=== PATIENT | female | born 1940 | race Caucasian/White ===

== ENCOUNTER → 2016-08-29 | Outpatient (CLI) | payer OTHER ==
[~2016-08-29] MED LIST: ACET-1256 PO; ADVIN50/60 INH; CHOL100027 PO; CITA40TA4 PO; CLC100X PO; CPR500 PO; EPP3/2 IM; METR-163 PO; PANT40TA PO; RANI300T PO; SNG10 PO; ULT50X PO
--- NOTE | 2016-08-29 16:43 | MAMMOGRAPHY REPORT ---
UNILATERAL LEFT DIGITAL SCREENING MAMMOGRAM TOMOSYNTHESIS WITH CAD: 08/29/2016 CLINICAL HISTORY: Routine screening. Patient has no complaints. TECHNIQUE: Left breast tomosynthesis in addition to standard 2D mammography was performed. Current bernard cisneros was also evaluated with a Computer Aided Detection (CAD) system. COMPARISON: Comparison is made to exams dated: 08/28/2015 mammogram - [facility], 08/12/2014 mammogram, and 07/29/2013 mammogram. BREAST COMPOSITION: The tissue of the left breast is heterogeneously dense, which may obscure small masses. FINDINGS: There are scattered and grouped punctate microcalcifications throughout the left breast, m ost numerous anteriorly, which are stable dating back to at least 2007, therefore likely benign. Th ere is also a stable tatiana-shaped metallic biopsy marker in the left upper outer quadrant. No new dinesh picious mass, architectural distortion or cluster of microcalcifications is seen. IMPRESSION: ACR BI-RADS CATEGORY 1: NEGATIVE There is no mammographic evidence of malignancy. A 1 year screening mammogram is recommended. The p atient will receive written notification of the results. Approximately 10% of breast cancers are not detected with mammography. A negative mammographic repor t should not delay biopsy if a clinically suggestive mass is present. Radha Simon M.D. ay/:08/29/2016 15:32:56 Heat Treating Furnace Tender: Blanca Richards, [facility] letter sent: Normal 1/2 BI-RADS Code: ACR BI-RADS Category 1: Negative
== END | disposition home or self-care (01) ==
LOC: C.MAMM 10:00
PROVIDERS: ATTEND Internal Medicine Geriatric Medicine
DX: Z12.31 Encounter for screening mammogram for malignant neoplasm of breast (principal)

== ENCOUNTER → 2016-11-28 | Outpatient (CLI) | payer OTHER ==
--- NOTE | 2016-11-28 15:08 | DIAGNOSTIC IMAGING REPORT ---
LUMBAR SPINE 5 VIEWS HISTORY: Pain Back pain, chronic COMPARISON: None. FINDINGS: There is no fracture. Mild scoliosis. Mild degenerative disc change. No evidence for an acute compression deformity. Vertebral body stature is normal. IMPRESSION: Mild scoliosis. Mild degenerative disc change. No acute process. Electronically signed by: Manfred Sorenson M.D. 11/28/2016 3:07 PM Dictated Date/Time: 11/28/2016 3:06 PM
== END | disposition home or self-care (01) ==
LOC: C.RADBC 14:27
PROVIDERS: ATTEND Internal Medicine Geriatric Medicine
DX: M54.9 Dorsalgia, unspecified (principal)

== ENCOUNTER → 2017-05-03 | Outpatient (CLI) | payer OTHER ==
[2017-05-03 17:47] LABS: BASO % 1.1 %; BASO ABS # 0.05 K/uL (0-0.2); COMPLETE YES; EOS % 3.5 %; HEMATOCRIT 38.5 % (37-47); IG% 0.2 %; LYMPH % 31.8 %; LYMPH ABS # 1.44 K/uL (1.2-3.4); MEAN CELL VOLUME 86.3 fL (80-100); MEAN CORPUSCULAR HEMOGLOBIN 28.7 pg (25-34); MEAN CORPUSCULAR HGB CONC 33.2 g/dl (32-36); MEAN PLATELET VOLUME 9.4 fL (7.4-10.4); MONO % 4.9 %; NEUT % 58.5 %; PLATELET COUNT 226 K/uL (130-400); RED BLOOD COUNT 4.46 M/uL (4.2-5.4); WHITE BLOOD COUNT 4.53 K/uL (4.8-10.8)
[2017-05-03 18:34] LABS: ALT/SGPT 17 U/L (12-78); AST/SGOT 14 U/L (15-37); BLOOD UREA NITROGEN 17 mg/dl (7-18); BUN/CREATININE RATIO 14.3 (10-20); CALCIUM 8.5 mg/dl (8.5-10.1); CARBON DIOXIDE 27 mmol/L (21-32); CHLORIDE 106 mmol/L (98-107); CHOLESTEROL 225 mg/dl (0-200); GLUCOSE 80 mg/dl (70-99); POTASSIUM 4.5 mmol/L (3.5-5.1); SODIUM 141 mmol/L (136-145)
[2017-05-03 18:42] LABS: ALB/GLOB RATIO 1.1 (0.9-2); ALKALINE PHOSPHATASE 63 U/L (45-117); CHOLESTEROL/HDL RATIO 3.3; HDL CHOLESTEROL 69 mg/dl; LDL CHOLESTEROL CALCULATED 126 mg/dl; TRIGLYCERIDES 150 mg/dl (0-150); VERY LOW DENSITY LIPOPROT CALC 30 mg/dl
== END | disposition home or self-care (01) ==
LOC: C.LAB 16:24
PROVIDERS: ATTEND Internal Medicine Geriatric Medicine
DX: F41.8 Other specified anxiety disorders (principal); E78.5 Hyperlipidemia, unspecified; M85.80 Other specified disorders of bone density and structure, unspecified site; R63.4 Abnormal weight loss; E55.9 Vitamin D deficiency, unspecified; M19.90 Unspecified osteoarthritis, unspecified site; R73.9 Hyperglycemia, unspecified

== ENCOUNTER → 2017-10-05 | Outpatient (CLI) | payer OTHER ==
--- NOTE | 2017-10-05 15:06 | MAMMOGRAPHY REPORT ---
UNILATERAL LEFT DIGITAL SCREENING MAMMOGRAM TOMOSYNTHESIS WITH CAD: 10/05/2017 CLINICAL HISTORY: Asymptomatic. Personal history of breast cancer. TECHNIQUE: Breast tomosynthesis in addition to standard 2D mammography was performed. Current study was also evaluated with a Computer Aided Detection (CAD) system. COMPARISON: Comparison is made to exams dated: 08/29/2016 mammogram, 08/28/2015 mammogram - [facility], 08/12/2014 mammogram, and 07/29/2013 mammogram. BREAST COMPOSITION: The tissue of the left breast is heterogeneously dense, which may obscure small masses. FINDINGS: There are no suspicious masses, calcifications, or areas of architectural distortion noted in the left breast. There has been no significant interval change compared to prior exams. Scattere d benign-appearing left breast calcifications are not significantly changed. A biopsy clip is again noted within the left 3:00 breast. IMPRESSION: ACR BI-RADS CATEGORY 2: BENIGN There is no mammographic evidence of malignancy in the left breast. A 1 year screening mammogram is r ecommended. The patient will receive written notification of the results. Approximately 10% of breast cancers are not detected with mammography. A negative mammographic report should not delay biopsy if a clinically suggestive mass is present. Elle Foreman M.D. ah/:10/05/2017 13:57:38 Networks Software Consultant: Mayte VALLADARES)(Ishan), [facility] letter sent: Normal 1/2 BI-RADS Code: ACR BI-RADS Category 2: Benign
== END | disposition home or self-care (01) ==
LOC: C.MAMM 13:30
PROVIDERS: ATTEND Internal Medicine Geriatric Medicine
DX: Z12.31 Encounter for screening mammogram for malignant neoplasm of breast (principal); Z90.11 Acquired absence of right breast and nipple

== ENCOUNTER → 2017-10-30 | Outpatient (CLI) | payer OTHER ==
[2017-10-30 16:47] LABS: BASO % 0.4 %; BASO ABS # 0.02 K/uL (0-0.2); EOS % 1.7 %; EOS ABS # 0.08 K/uL (0-0.5); HEMATOCRIT 38.8 % (37-47); IG# 0.01 K/uL (0.00-0.02); LYMPH % 42.3 %; LYMPH ABS # 1.95 K/uL (1.2-3.4); MEAN CELL VOLUME 83.8 fL (80-100); MEAN CORPUSCULAR HEMOGLOBIN 28.1 pg (25-34); MEAN CORPUSCULAR HGB CONC 33.5 g/dl (32-36); MEAN PLATELET VOLUME 9.7 fL (7.4-10.4); MONO ABS # 0.46 K/uL (0.11-0.59); NEUT % 45.4 %; NEUT ABS # 2.09 K/uL (1.4-6.5); PLATELET COUNT 254 K/uL (130-400); RED CELL DISTRIBUTION WIDTH CV 12.9 % (11.5-14.5); RED CELL DISTRIBUTION WIDTH SD 38.7 fL (36.4-46.3); WHITE BLOOD COUNT 4.61 K/uL (4.8-10.8)
[2017-10-30 17:25] LABS: ALBUMIN 3.8 gm/dl (3.4-5.0); ALT/SGPT 23 U/L (12-78); AST/SGOT 23 U/L (15-37); BLOOD UREA NITROGEN 16 mg/dl (7-18); CALCIUM 8.7 mg/dl (8.5-10.1); CARBON DIOXIDE 25 mmol/L (21-32); CREATININE 1.31 mg/dl (0.60-1.20); GLUCOSE 95 mg/dl (70-99); POTASSIUM 3.9 mmol/L (3.5-5.1); SODIUM 140 mmol/L (136-145)
[2017-10-30 17:27] LABS: ALKALINE PHOSPHATASE 55 U/L (45-117); TOTAL PROTEIN 7.3 gm/dl (6.4-8.2)
== END | disposition home or self-care (01) ==
LOC: C.LABBC 14:17
PROVIDERS: ATTEND Family Medicine Adult Medicine
DX: R10.9 Unspecified abdominal pain (principal)

== ENCOUNTER → 2017-11-13 | Outpatient (CLI) | payer OTHER ==
[2017-11-13 17:19] LABS: BLOOD UREA NITROGEN 13 mg/dl (7-18); CALCIUM 8.8 mg/dl (8.5-10.1); CARBON DIOXIDE 29 mmol/L (21-32); CREATININE 1.07 mg/dl (0.60-1.20); GLUCOSE 82 mg/dl (70-99); POTASSIUM 3.2 mmol/L (3.5-5.1); SODIUM 137 mmol/L (136-145)
== END | disposition home or self-care (01) ==
LOC: C.LABBC 12:50
PROVIDERS: ATTEND Internal Medicine Geriatric Medicine
DX: N18.9 Chronic kidney disease, unspecified (principal)

== ENCOUNTER → 2017-12-05 | Outpatient (CLI) | payer OTHER ==
--- NOTE | 2017-12-05 14:51 | DIAGNOSTIC IMAGING REPORT ---
ABD/PELVIS ORAL CONT ONLY CLINICAL HISTORY: 76 years-old Female presenting with ABD PAIN, NAUSEA. TECHNIQUE: Multidetector CT of the abdomen and pelvis was performed after the administration of oral contrast only. IV contrast: None. A dose lowering technique was used consistent with the principles of ALARA (as low as reasonably achievable). COMPARISON: 04/30/2015. CT DOSE (mGy.cm): The estimated cumulative dose is 885.29 mGycm. FINDINGS: Kitchen Cleaner topogram: Unremarkable. Lung bases: Lungs and pleural spaces clear. Normal heart size. Aortic valve calcification. No pericardial or pleural effusion. Liver: Normal morphology. Normal density. Well-defined hypodense lesion in the medial left hepatic lobe likely hepatic cyst though indeterminate on this noncontrast exam. Biliary: No gross biliary ductal dilatation allowing for noncontrast technique. Gallbladder contains gallstones. Pancreas: Normal noncontrast appearance. Spleen: Normal noncontrast appearance. Adrenal glands: Normal noncontrast appearance. Kidneys and ureters: Hypodensity in the left kidney, indeterminate but likely cyst. No nephrolithiasis. No hydronephrosis. Normal ureters. Bladder: Normal. Pelvic organs: Normal noncontrast appearance. Bowel: Moderate stool burden throughout normal caliber colon. Oral contrast has transited to the transverse colon. Scrolling mesenteric vessels evident in the mid abdomen. This is associated with postsurgical changes of the small bowel with an enteroenteric anastomosis. The anastomosis is patent. Significant wall thickening of the adjacent loop of bowel in the right mid abdomen, which is also dilated up stream. The configuration is consistent with an internal hernia through presumed mesenteric defect with a focal transition point (series 3 image 252). Given the presence of oral contrast distal to this, dilated small bowel does not indicate a complete obstruction. Moderate hiatal hernia. Peritoneal cavity: No free fluid or intraperitoneal gas. Lymph nodes: No gross lymphadenopathy allowing for noncontrast technique. Vasculature: Atherosclerosis of the normal caliber abdominal aorta. Postsurgical changes of the ventral midline abdomen. Abdominal wall: Normal. Musculoskeletal: Normal. IMPRESSION: 1. Findings worrisome for partial low-grade small bowel obstruction secondary to internal hernia at a postsurgical mesenteric defect in the mid abdomen. This is near an enteroenteric anastomosis. Wall thickening of the partially obstructed bowel loop could suggest venous congestive change. No pneumatosis. No free air. Electronically signed by: Mike Ortez M.D. 12/05/2017 2:49 PM Dictated Date/Time: 12/05/2017 2:40 PM
== END | disposition home or self-care (01) ==
LOC: C.CTS 12:00
PROVIDERS: ATTEND Internal Medicine Geriatric Medicine
DX: R11.0 Nausea (principal); R10.9 Unspecified abdominal pain; R93.5 Abnormal findings on diagnostic imaging of other abdominal regions, including retroperitoneum

== ENCOUNTER 2019-06-10 03:48 | Inpatient (IN) ==
[2019-06-10] MEDS ORDERED: GLUCAGON 1 MG in SYRINGE 0 ML IV STA (04:10)
[2019-06-10] MEDS ORDERED: METOCLOPRAMIDE HCL INJ 5 MG/ML 2 ML VIAL IV STA (04:10)
[2019-06-10] MEDS ORDERED: DIAZEPAM 5 MG/ML INJ 10ML VIAL IV STA (04:10)
[2019-06-10] MEDS ORDERED: NITROGLYCERIN 2% OINTMENT 30GM TUBE EXT STA (04:12)
[2019-06-10] MEDS ORDERED: SODIUM CHLORIDE 0.9% 1000ML 1,000 ML IV SCH (04:15)
[2019-06-10 04:30] LABS: Basophils # (auto) 0.02 K/uL (0-0.2); Basophils % (auto) 0.2 %; Eosinophils # (auto) 0.11 K/uL (0-0.5); Eosinophils % (auto) 1.2 %; Hematocrit (blood only) 44.2 % (37-47); Hemoglobin 14.9 g/dL (12.0-16.0); Immature Granulocytes # (auto) 0.03 K/uL (0.00-0.02); Immature Granulocytes % (auto) 0.3 %; Lymphocytes # (auto) 1.73 K/uL (1.2-3.4); Mean Corpuscular Hgb Conc 33.7 g/dL (32-36); Mean Corpuscular Volume 86.2 fL (80-100); Mean Platelet Volume 9.4 fL (7.4-10.4); Monocytes # (auto) 0.73 K/uL (0.11-0.59); Neutrophils # (auto) 6.48 K/uL (1.4-6.5); Neutrophils % (auto) 71.3 %; Platelet Count 245 K/uL (130-400); RDW Coefficient of Variation 12.7 % (11.5-14.5); RDW Standard Deviation 40.6 fL (36.4-46.3); Red Blood Count 5.13 M/uL (4.2-5.4)
[2019-06-10] MEDS ORDERED: GLUCAGON FOR INJ 1 MG VIAL ONE (04:32)
[2019-06-10 04:35] LABS: iSTAT Creatinine 1.4 mg/dl (0.6-1.3); iSTAT Ionized Calcium 1.19 mmol/l (1.12-1.32); iSTAT Potassium 3.6 mEq/L (3.3-5.0)
[2019-06-10 04:44] LABS: Alanine Aminotransferase 17 U/L (12-78); Albumin Level 3.4 gm/dl (3.4-5.0); Aspartate Aminotransferase 13 U/L (15-37); BUN Creatinine Ratio 15.5 (10-20); Blood Urea Nitrogen 20 mg/dl (7-18); Calcium 9.8 mg/dl (8.5-10.1); Carbon Dioxide 29 mmol/L (21-32); Chloride 105 mmol/L (98-107); Creatinine Clr Calc Pharmacy 32.4 ml/min; Est GFR (African American) 44.4; Est GFR (Non-African American) 38.3; Glucose 133 mg/dl (70-99); Lipase 186 U/L (73-393); Potassium 3.6 mmol/L (3.5-5.1); Sodium 141 mmol/L (136-145)
[2019-06-10 04:49] LABS: Albumin Globulin Ratio 0.9 (0.9-2); Alkaline Phosphatase 68 U/L (45-117); Bilirubin,Total 0.9 mg/dl (0.2-1); Creatine Kinase 45 U/L (26-192); Creatine Kinase MB < 1.0 ng/ml (0.5-3.6); Globulin 3.9 gm/dl (2.5-4.0); Total Protein 7.3 gm/dl (6.4-8.2); Troponin I < 0.015 ng/ml (0-0.045)
[2019-06-10] MEDS ORDERED: IOVERSOL 100ml IV PRN (05:24)
--- NOTE | 2019-06-10 06:42 | Emergency Department Note ---
Entered by Bonny Marquez acting as a scribe for Ricardo Garcia MD History of Present Illness General Chief complaint: Vomiting Stated complaint: vomiting, dizzy, weak Time Seen by Provider: 06/10/19 04:01 Source: patient History of Present Illness Onset (ago): day(s) 2 Location: abdomen Severity: similar to prior episodes Pain Consistency: + intermittent Maximum Pain Intensity: 6 Quality: + other (vomiting ) Associated symptoms: + other (negative bowel movements) The patient is a 78 year old female who presents to the Emergency Room with complaints of intermittent vomiting that began 2 days prior to arrival. The patient states that she has a hiatal hernia and states that this is similar to prior episodes. The patient states that she is unable to swallow water, which is worse than her prior episodes. The patient denies having bowel movements. The patient states that she had pneumonia 10 days ago. The patient denies being on blood thinners. Home Medications Home Medications Medication Instructions Recorded Confirmed Type pantoprazole 40 mg PO BID #0 08/08/11 06/10/19 History ranitidine HCl 300 mg PO BID #0 06/01/12 06/10/19 History fluticasone 500 mcg-salmeterol 50 1 inh INHALATION DAILY #60 ea 02/11/19 06/10/19 Rx mcg/dose blistr powdr for inhalation montelukast 10 mg tablet 10 mg PO PM #90 tab 02/15/19 06/10/19 Rx acetaminophen 650 mg 1,300 mg PO BID PRN #60 tab 03/11/19 06/10/19 History tablet,extended release docusate sodium 100 mg capsule 100 mg PO BID cap 03/11/19 06/10/19 History epinephrine 0.3 mg/0.3 mL 0.3 ml IM UD PRN #1 ea 03/11/19 06/10/19 History injection, auto-injector venlafaxine 75 mg capsule,extended 75 mg PO DAILY #90 cap 03/11/19 06/10/19 History release 24 hr albuterol sulfate 90 mcg/actuation 1 puffs INH Q6H PRN #18 gm 03/15/19 06/10/19 Rx aerosol inhaler fexofenadine 180 mg tablet 180 mg PO DAILY PRN #90 tab 05/16/19 06/10/19 Rx cholecalciferol (vitamin D3) 5,000 unit PO DAILY 06/10/19 06/10/19 History [Vitamin D3] Allergies Allergy/AdvReac Type Severity Reaction Status Date / Time Penicillins Allergy Intermediate Rash Verified 06/10/19 11:08 mirtazapine [From Remeron] Allergy Unknown Unknown Verified 06/10/19 11:08 diphenhydramine AdvReac Intermediate "couldn't Verified 06/10/19 08:11 [From Benadryl] stop talking" Past Med/Surg History Medical History Hiatal hernia (Chronic) 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 Feels Safe at Home: Yes Smoking Status: Never smoker Hx Alcohol Use: No Hx Substance Use: No Review of Systems See HPI for pertinent positives & negatives. and A total of 10 systems reviewed and were otherwise negative Physical Exam Vital Signs Vital Signs - 24 hr 06/10/19 03:52 06/10/19 03:59 06/10/19 04:18 Temperature 37.2 C 37.2 C Temperature Source Oral Oral Sepsis Recent Fever Within 48 Hours No Sepsis New/Unexplained Change in Mental Status No Sepsis Action Taken by Nursing No Action Required Pulse Rate 86 Pulse Rate [Finger] 84 Pulse Rhythm Regular Pulse Rhythm [Finger] Regular Pulse Strength Normal Pulse Strength [Finger] Normal Respiratory Rate 20 17 Respiratory Effort / Characteristics Non-Labored Spontaneous Non-Labored Spontaneous Respiratory Depth Normal Normal Respiratory Pattern Regular Regular Blood Pressure 153/108 H Blood Pressure [Left Arm] 153/108 H Blood Pressure Mean 123 Blood Pressure Mean [Left Arm] 123 Blood Pressure Position Lying Blood Pressure Position [Left Arm] Lying Pulse Oximetry 99 98 96 Oxygen Delivery Method Room Air Room Air Room Air 06/10/19 05:15 06/10/19 05:57 06/10/19 06:23 Temperature 36.6 C Temperature Source Oral Sepsis Recent Fever Within 48 Hours Sepsis New/Unexplained Change in Mental Status Sepsis Action Taken by Nursing Pulse Rate Pulse Rate [Finger] 87 82 89 Pulse Rhythm Pulse Rhythm [Finger] Regular Regular Regular Pulse Strength Pulse Strength [Finger] Normal Normal Normal Respiratory Rate 16 19 21 Respiratory Effort / Characteristics Non-Labored Spontaneous Non-Labored Spontaneous Non-Labored Spontaneous Respiratory Depth Normal Normal Normal Respiratory Pattern Regular Regular Regular Blood Pressure Blood Pressure [Left Arm] 123/60 174/82 H 163/61 H Blood Pressure Mean Blood Pressure Mean [Left Arm] 81 112 95 Blood Pressure Position Blood Pressure Position [Left Arm] Lying Lying Lying Pulse Oximetry 99 100 99 Oxygen Delivery Method Room Air Room Air Room Air GENERAL: Awake, alert, well-appearing, in no acute distress HENT: Normocephalic, atraumatic. Oropharynx unremarkable. EYES: Normal conjunctiva. Sclera non-icteric. NECK: Supple. No nuchal rigidity. FROM. No JVD. RESPIRATORY: Clear to auscultation. CARDIAC: Regular rate, normal rhythm. Extremities warm and well perfused. Pulses equal. ABDOMEN: Soft, non-distended. No tenderness to palpation. No rebound or guarding. No masses. RECTAL: Deferred. MUSCULOSKELETAL: Chest examination reveals no tenderness. The back is s ymmetrical on inspection without obvious abnormality. There is no CVA tenderness to palpation. No joint edema. LOWER EXTREMITIES: Calves are equal size bilaterally and non-tender. No edema. No discoloration. NEURO: Normal sensorium. No sensory or motor deficits noted. SKIN: No rash or jaundice noted. Course 0404: Past medical records reviewed. The patient was evaluated in room B4B. A complete history and physical exam was performed. Administered Medications Discontinued Medications Diazepam (Valium) 5 mg IV NOW STA Stop: 06/10/19 04:11 Last Admin: 06/10/19 04:33 Dose: 5 mg Documented by: [id number] Glucagon (Glucagen) Confirm Administered Dose 1 mg .ROUTE .[facility] Stop: 06/10/19 04:33 Last Admin: 06/10/19 04:42 Dose: Not Given Documented by: [id number] Heparin Sodium (Porcine) (Heparin Sodium (Porcine)) 5,000 units SQ Q8 JUAN PABLO Stop: 07/10/19 13:59 Last Admin: 06/12/19 13:42 Dose: Not Given Documented by: [id number] Admin: 06/12/19 05:44 Dose: 5,000 units Documented by: [id number] Cosigned by: [id number] Admin: 06/11/19 21:28 Dose: 5,000 units Documented by: [id number] Cosigned by: [id number] Admin: 06/11/19 14:05 Dose: 5,000 units Documented by: [id number] Cosigned by: [id number] Admin: 06/11/19 05:59 Dose: 5,000 units Documented by: [id number] Cosigned by: [id number] Admin: 06/10/19 22:13 Dose: 5,000 units Documented by: [id number] Cosigned by: [id number] Admin: 06/10/19 14:10 Dose: 5,000 units Documented by: [id number] Cosigned by: [id number] Sodium Chloride (Nss 1000ml) 1,000 mls @ 999 mls/hr IV .Q1H1M JUAN PABLO Stop: 06/10/19 05:15 Last Infusion: 06/10/19 06:25 Dose: 0 mls/hr Documented by: [id number] Admin: 06/10/19 04:51 Dose: 999 mls/hr Documented by: [id number] Glucagon 1 mg/ Syringe 1 mls @ 1 mls/min IV NOW STA Stop: 06/10/19 04:11 Last Admin: 06/10/19 04:34 Dose: 1 mls/min Documented by: [id number] Potassium Chloride 10 meq/ (Sodium Chloride) 1,005 mls @ 80 mls/hr IV .[id number] [facility] Stop: 07/10/19 10:29 Last Admin: 06/12/19 12:44 Dose: 80 mls/hr Documented by: [id number] Infusion: 06/12/19 12:43 Dose: 80 mls/hr Documented by: [id number] Admin: 06/12/19 00:09 Dose: 80 mls/hr Documented by: [id number] Infusion: 06/12/19 00:09 Dose: 80 mls/hr Documented by: [id number] Infusion: 06/11/19 21:28 Dose: 80 mls/hr Documented by: [id number] Admin: 06/11/19 11:42 Dose: 80 mls/hr Documented by: [id number] Infusion: 06/11/19 11:42 Dose: 80 mls/hr Documented by: [id number] Admin: 06/11/19 00:01 Dose: 80 mls/hr Documented by: [id number] Infusion: 06/11/19 00:01 Dose: 80 mls/hr Documented by: [id number] Admin: 06/10/19 11:32 Dose: 80 mls/hr Documented by: [id number] Ioversol (Optiray 320 100ml) 100 ml IV ONCE PRN PRN Reason: Interaction Checking Stop: 06/14/19 05:23 Last Admin: 06/10/19 05:24 Dose: 92 ml Documented by: [id number] Lidocaine HCl (Xylocaine 2%) Confirm Administered Dose 2 ml INFIL .STK-MED ONE Stop: 06/10/19 13:16 Last Admin: 06/10/19 14:06 Dose: Not Given Documented by: [id number] Metoclopramide HCl (Reglan) 10 mg IV NOW STA Stop: 06/10/19 04:11 Last Admin: 06/10/19 04:33 Dose: 10 mg Documented by: [id number] Nitroglycerin (Nitro-Bid 2%) 1 inch EXT NOW STA Stop: 06/10/19 04:13 Last Admin: 06/10/19 04:33 Dose: 1 inch Documented by: [id number] Ondansetron HCl (Zofran) 4 mg IV NOW STA Stop: 06/10/19 06:44 Last Admin: 06/10/19 07:13 Dose: 4 mg Documented by: [id number] Propofol (Diprivan) Confirm Administered Dose 200 mg IV .STK-MED ONE Stop: 06/10/19 13:16 Last Admin: 06/10/19 14:06 Dose: Not Given Documented by: [id number] Medical Decision Making Differential Diagnosis Differential diagnoses includes but is not limited to gastritis, peptic ulcer disease, GERD, gallbladder disease, pancreatitis, small bowel obstruction, acute coronary syndrome, pericarditis, ischemic bowel, irritable bowel disease, irritable bowel syndrome, appendicitis, diverticulitis, malignancy, hernia, urinary tract infection, torsion, /ectopic , perforation, trau ma, infectious. Medical Records Attestation: I reviewed the patient's medical records. Home Medications Current Medication List: was personally reviewed by me Laboratory Data Attestation: I reviewed the patient's lab results. Result diagrams: 06/11/19 09:00 06/11/19 09:00 Lab Results 06/10/19 06/10/19 06/10/19 Range/Units 04:00 04:00 04:21 WBC 9.10 (4.8-10.8) K/uL RBC 5.13 (4.2-5.4) M/uL Hgb 14.9 (12.0-16.0) g/dL POC Hgb 15.0 (12.0-16.0) g/dl Hct 44.2 (37-47) % POC Hct 44 (37-47) % MCV 86.2 (80-100) fL MCH 29.0 (25-34) pg MCHC 33.7 (32-36) g/dL RDW Std Deviation 40.6 (36.4-46.3) fL RDW Coeff of Chayo 12.7 (11.5-14.5) % Plt Count 245 (130-400) K/uL MPV 9.4 (7.4-10.4) fL Immature Gran % (Auto) 0.3 % Neut % (Auto) 71.3 % Lymph % (Auto) 19.0 % [place] % (Auto) 8.0 % Eos % (Auto) 1.2 % Baso % (Auto) 0.2 % Immature Gran # (Auto) 0.03 H (0.00-0.02) K/uL Neut # (Auto) 6.48 (1.4-6.5) K/uL Lymph # (Auto) 1.73 (1.2-3.4) K/uL [place] # (Auto) 0.73 H (0.11-0.59) K/uL Eos # (Auto) 0.11 (0-0.5) K/uL Baso # (Auto) 0.02 (0-0.2) K/uL POC Sodium 140 (135-144) mEq/L Sodium 141 (136-145) mmol/L POC Potassium 3.6 (3.3-5.0) mEq/L Potassium 3.6 (3.5-5.1) mmol/L POC Chloride 102 (101-112) mEq/L Chloride 105 (98-107) mmol/L Carbon Dioxide 29 (21-32) mmol/L POC Total CO2 26 (24-31) mEq/l Anion Gap 7.0 (3-11) POC Anion Gap 16.0 (16-25) mmol/L POC BUN 20 H (7-18) mg/dl BUN 20 H (7-18) mg/dl Creatinine 1.32 H (0.6-1.2) mg/dl POC Creatinine 1.4 H (0.6-1.3) mg/dl Est Cr Clr Drug Dosing 32.4 ml/min Est GFR ( Amer) 44.4 Est GFR (Non-Af Amer) 38.3 BUN/Creatinine Ratio 15.5 (10-20) Glucose 133 H (70-99) mg/dl POC Glucose (other) 134 H (70-99) mg/dl Calcium 9.8 (8.5-10.1) mg/dl POC Ioniz Calcium Giovanni 1.19 (1.12-1.32) mmol/l Total Bilirubin 0.9 (0.2-1) mg/dl AST 13 L (15-37) U/L ALT 17 (12-78) U/L Alkaline Phosphatase 68 (45-117) U/L Total Creatine Kinase 45 (26-192) U/L CK-MB (CK-2) < 1.0 (0.5-3.6) ng/ml CK/CKMB % Calc TNP Troponin I < 0.015 (0-0.045) ng/ml Total Protein 7.3 (6.4-8.2) gm/dl Albumin 3.4 (3.4-5.0) gm/dl Globulin 3.9 (2.5-4.0) gm/dl Albumin/Globulin Ratio 0.9 (0.9-2) Lipase 186 (73-393) U/L Imaging Data Radiologist's Impression: CT chest with contrast: 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 There is mural thickening of mid to distal esophagus and adjacent fluid/edema. Trace right pleural effusion. Mild atelectasis adjacent to the hiatal hernia. Lungs otherwise clear. Coronary artery calcification. No aortic aneurysm or dissection. No evidence of pulmonary embolism. Degenerative changes of spine. CT abdomen pelvis with contrast: Large non-sliding hiatal hernia with organoaxial gastric volvulus as above. There is distention of the stomach portions above and below the diaphragm. Cholelithiasis without evidence of acute cholecystitis. No biliary ductal dilation. Small bowel and anastomosis. Trace free fluid in pelvis. No free air. Left renal cyst. Degenerative changes of spine. Blood Pressure Blood Pressure Findings: Elevated blood pressure MDM Narrative This is a 78-year-old female who presents emergency department complaining of not being able to keep anything down since Monday evening. The patient reports anytime she eats anything she vomits it back up. Based on this using shared medical decision-making with the patient the decision was made to send the patient for CAT scan of the chest abdomen pelvis. In the meanwhile patient was given glucagon Reglan and Nitropaste as well as Valium. The patient continued to vomit here in the emergency department. I did discuss the case with the surgeon on-call who asked that the patient be discussed with the [facility] surgeon on-call along with a nasal gastric tube Impression & Plan Volvulus of stomach, Abdominal pain, Hiatal hernia Discharge Plan Visit Data *Final* Discharge Date/Time: 06/10/19 08:01 Chief Complaint: Vomiting Stated Complaint: vomiting, dizzy, weak ED Provider: Ricardo Garcia Discharge Problem: Volvulus of stomach, Abdominal pain, Hiatal hernia Patient Disposition: Admitted As Inpatient Condition: Good Discharge Instructions Interventions: ED Discharge Assessment Last Done: 06/10/19 08:01 Discharge Problem: Abdominal pain Qualifiers: Abdominal location: unspecified location Qualified Code(s): R10.9 - Unspecified abdominal pain The scribe's documentation has been prepared under my direction and personally reviewed by me in its entirety. I confirm that the note above accurately reflects all work, treatment, procedures, and medical decision making performed by me.
[2019-06-10] MEDS ORDERED: ONDANSETRON INJ 2 MG/ML 2 ML VIAL IV STA (06:43)
--- NOTE | 2019-06-10 07:17 | CT Scan Report ---
CHEST, ABDOMEN, AND PELVIS CT WITH CONTRAST CT DOSE: 484.35 mGy.cm HISTORY: Pt vomiting, hiatal hernia TECHNIQUE: Multiaxial CT images of the chest, abdomen, pelvis were performed following the intravenou s administration of contrast. A dose lowering technique was utilized adhering to the principles of A NAT. COMPARISON: Chest CTA 08/30/2007. Abdomen and pelvis CT 05/23/2018. FINDINGS: Chest CT: There is diffuse thickening of the esophagus with a small amount of adjacent fluid. There i s again noted a large hiatus hernia which appears to demonstrate an organoaxial gastric volvulus. Dis tention of the stomach portions both above and below the diaphragm. The gastric antrum is decompresse d at the level of the diaphragmatic hiatus. No mediastinal or hilar lymphadenopathy. The mediastinal vascular structures are within normal limits. The heart is normal in size. Trace right pleural effusi on. No pericardial effusions. Suggestion of a prior right mastectomy. No suspicious lytic or blastic osseous lesions. Linear density adjacent to the hiatus hernia consistent with atelectasis. No pneumot horax. Stable subcentimeter nodule within the right lower lobe on image 144 the largest measuring 4 m m. Therefore, these are considered to be benign. No new focal lung consolidations to suggest pneumoni a. The central airways are patent. Abdomen and pelvis CT: The hiatus hernia is described above. Cholelithiasis. No gallbladder wall thic kening. The pancreas, spleen, and adrenal glands are unremarkable. A few hepatic and renal hypodense lesions remain stable. These favor cysts. No retroperitoneal lymphadenopathy. The visualized appendix is unremarkable. The bladder, uterus, bilateral adnexa are within normal limits. There is trace pelv ic free fluid. No dilated loops of large or small bowel. Small bowel anastomosis within the mid abdom en is again noted. No suspicious lytic or blastic osseous lesions. IMPRESSION: 1. Large hiatal hernia containing the majority of the stomach. There is distention of the stomach por tions both above and below the diaphragm with decompression of the gastric antrum at the level of the diaphragmatic hiatus. 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 2. Thickening of the esophagus with surrounding fluid. This favors a nonspecific esophagitis. 3. Cholelithiasis. 4. Additional findings as described above. Electronically signed by: Stew Duarte M.D. 06/10/2019 7:16 AM
[2019-06-10] MEDS ORDERED: ONDANSETRON INJ 2 MG/ML 2 ML VIAL IV PRN (08:09)
--- NOTE | 2019-06-10 09:26 | Gastrointestinal Consultation ---
Date of Consultation June 10, 2019 Assessment & Plan (1) Hiatal hernia: (2) Vomiting: (3) Volvulus of stomach: 1. Continue NPO status. 2. EGD with Dr. Whipple today. 3. Continue supportive care. 4. Recommend surgical consultation. 5. Additional recommendations will be made pending results of testing. Supervising Physician Co-Signing Physician Notes Agree with DANELLE Ferreira Abd: Soft, NT, ND, NG tube in right nare Continue current therapy and supportive care EGD now for further evaluation. History of Present Illness Reason for Consultation: Gastric volvulus Requesting Physician: Dr. Mcguire Attending Physician: Carlton Mcguire, DO History of Present Illness Aspen Bingham is a pleasant 78 year-old female with a history of GERD and large hiatus hernia (dx via EGD by Dr. Osman in 2011) admitted with severe vomiting beginning two days [employer]. States she was unable to swallow either liquids or solids without vomiting. The symptoms were associated with chest pressure and shortness of breath. Denies any fevers or chills, palpitations, abdominal pain, hematemesis, or melena. States she has not passed any bowel movement since arrival. NG has been placed with minimal output. Chest CT obtained demonstrated a large hiatus hernia with majority of stomach in the chest with associated volvulus. She remains NPO. Laboratory testing demonstrated a normal white blood cell count of 9.10, hemoglobin 14.9 and hematocrit 44.2%, creatinine 1.32 and BUN 20. Lipase was normal at 186. Patient has been using Pantoprazole 40 mg and Ranitidine 300 mg BID for chronic reflux management. Allergies Allergy/AdvReac Type Severity Reaction Status Date / Time Penicillins Allergy Intermediate Rash Verified 06/10/19 11:08 mirtazapine [From Remeron] Allergy Unknown Unknown Verified 06/10/19 11:08 diphenhydramine AdvReac Intermediate "couldn't Verified 06/10/19 08:11 [From Benadryl] stop talking" Home Medications Home Medications Medication Instructions Recorded Confirmed Type pantoprazole 40 mg PO BID #0 08/08/11 06/10/19 History ranitidine HCl 300 mg PO BID #0 06/01/12 06/10/19 History fluticasone 500 mcg-salmeterol 50 1 inh INHALATION DAILY #60 ea 02/11/19 06/10/19 Rx mcg/dose blistr powdr for inhalation montelukast 10 mg tablet 10 mg PO PM #90 tab 02/15/19 06/10/19 Rx acetaminophen ER 650 mg 1,300 mg PO BID PRN #60 tab 03/11/19 06/10/19 History tablet,extended release docusate sodium 100 mg capsule 100 mg PO BID cap 03/11/19 06/10/19 History epinephrine 0.3 mg/0.3 mL 0.3 ml IM UD PRN #1 ea 03/11/19 06/10/19 History injection, auto-injector venlafaxine ER 75 mg 75 mg PO DAILY #90 cap 03/11/19 06/10/19 History capsule,extended release 24 hr albuterol sulfate HFA 90 1 puffs INH Q6H PRN #18 gm 03/15/19 06/10/19 Rx mcg/actuation aerosol inhaler fexofenadine 180 mg tablet 180 mg PO DAILY PRN #90 tab 05/16/19 06/10/19 Rx cholecalciferol (vitamin D3) 5,000 unit PO DAILY 06/10/19 06/10/19 History [Vitamin D3] Patient History Medical History Hiatal hernia (Chronic) TIA involving basilar artery (Acute) Vertebrobasilar circulation transient ischemic attack (Acute 12/09/13) Gallstones (Chronic) Breast cancer Chronic kidney disease Chronic kidney disease, stage 3 Vertigo Vomiting Surgical History History of mandibular surgery History of modified radical mastectomy History of tonsillectomy S/P small bowel resection Family History Other Cancer Social History Preferred Language: Peruvian Communication Ability: Effective Resistance Welder Required: No Beliefs That Will Affect Care: None marital status: / Current Living Situation: Alone Current Living Situation Comment: Lives with 2 cats and 1 dog. 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 Other Information That Helps Us Care for You: No Feels Safe at Home: Yes Safety Concerns: Feels Safe At This Time Smoking Status: Never smoker Hx Alcohol Use: No Hx Substance Use: No Review of Systems Constitutional: no fever, no chills and no weight loss Eyes: no problem reported Ear, Nose, Mouth, Throat: as per Subjective / HPI Respiratory: as per Subjective / HPI Cardiovascular: as per Subjective / HPI Gastrointestinal: as per Subjective / HPI Musculoskeletal: no joint pain and no swelling Integumentary: no rash and no lesions Neurologic: no numbness and no paresthesia Psychiatric: no depression and no anxiety Endocrine: + fatigue Hematologic / Lymphatic: no easy bleeding and no easy bruising Physical Exam Constitutional: WD/WN, vitals as above Eyes: EOM intact bilaterally ENMT: NG intact Neck: normal appearance Respiratory: normal respiratory effort, lungs clear to auscultation Cardiovascular: Rate/Rhythm: regular rate and regular rhythm Heart Sounds: no gallop and no murmur Gastrointestinal (Abdomen): normal bowel sounds, soft, nontender, no hepatosplenomegaly Inspection/Auscultation: abdomen not distended Musculoskeletal: Extremities: no cyanosis no lower extremity edema Skin: no rashes, warm and dry Neurologic: moves all extremities Psychiatric: A+Ox3, euthymic affect Results & Data Vital Signs (Past 12 Hours) Vital Signs Temp Pulse Pulse Resp BP BP Pulse Ox 06/10/19 08:01 87 22 117/62 95 06/10/19 07:18 85 26 H 129/72 95 06/10/19 06:23 89 21 163/61 H 99 06/10/19 05:57 36.6 C 82 19 174/82 H 100 06/10/19 05:15 87 16 123/60 99 06/10/19 04:18 96 06/10/19 03:59 37.2 C 84 17 153/108 H 98 06/10/19 03:52 37.2 C 86 20 153/108 H 99 Laboratory Results Abnormal lab results 06/10/19 06/10/19 06/10/19 Range/Units 04:00 04:00 04:21 Immature Gran # (Auto) 0.03 H (0.00-0.02) K/uL [place] # (Auto) 0.73 H (0.11-0.59) K/uL POC BUN 20 H (7-18) mg/dl BUN 20 H (7-18) mg/dl Creatinine 1.32 H (0.6-1.2) mg/dl POC Creatinine 1.4 H (0.6-1.3) mg/dl Glucose 133 H (70-99) mg/dl POC Glucose (other) 134 H (70-99) mg/dl AST 13 L (15-37) U/L PG Care Time/CCT Total # of Minutes Spent Total Time Spent with Patient: Total time spent is greater than 50% in coordination of care (as documented) at patient's floor/unit and/or counseling patient:
--- NOTE | 2019-06-10 10:24 | History & Physical Report ---
Date of Service June 10, 2019 Assessment & Plan (1) Volvulus of stomach: associated with large hiatal hernia that is chronic issue acute onset vomiting on Monday night, 36 hours prior to admission continue NGT with low intermittent suction, Zofran PRN plan for EGD today, keep NPO until that time general surgery also consulted for recommendations, ie hiatal hernia repair, gastropexy? NSS + K at 80cc/hr while NPO (2) Vomiting: Zofran PRN, NGT in place due to volvulus (3) Hiatal hernia: consult general surgery for recommendations on repair (4) Asthma: no wheezing on exam, breathing comfortably (5) Osteopenia: hold oral supplements for time being (6) Generalized osteoarthritis: (7) Hyperlipidemia: hold home meds while NPO (8) Allergic rhinitis: (9) GERD (gastroesophageal reflux disease): no indication for Protonix IV for now, can resume PO once okay with GI/surgery (10) Depression: History of Present Illness Chief Complaint: I couldn't keep anything down Primary Care Provider: Felipe Lance MD 78 yo female with long history of hiatal hernia as well as multiple surgeries for small bowel obstruction, s/p resection of small bowel, presented today with intractable vomiting, unable to even keep liquids down. She said that 2 weeks ago she was diagnosed with mild case of pneumonia at [facility]. She completed a full course of antibiotics and her symptoms improved. She was in her usual state of health until Monday night, 36 hours prior to presentation. At that time she vomited up everything she had eaten for dinner. She continued to have small episodes of vomiting. She progressed to the point that even drinking a little water or tea would cause her to vomit. She had a little bit of abdominal discomfort associated with the vomiting but never true pain. Her last BM was several days ago which is a little unusual for her. She denies any fever, chills, chest pain, dyspnea. She says that her symptoms improve by not eating or drinking and they get worse if she tries to drink anything. She came to the ED this morning given her history of small bowel obstructions. She says that she has had similar symptoms with her SBO. She says that once a year she will get episodes of vomiting that pass after a day or so, this episode was much more intense. In the ED her vitals were stable, labs were stable. CT chest/abdomen/pelvis showed evidence of a very large hiatal hernia with most of the stomach in her chest as well as likely torsion of her stomach, suggestive of a gastric volvulus. Both general surgery and GI were made aware of the patient. NG tube placed in the ED, small amount of bilious fluid drained and patient reported some improvement in her nausea and discomfort. Allergies Allergy/AdvReac Type Severity Reaction Status Date / Time Penicillins Allergy Intermediate Rash Verified 06/10/19 11:08 mirtazapine [From Remeron] Allergy Unknown Unknown Verified 06/10/19 11:08 diphenhydramine AdvReac Intermediate "couldn't Verified 06/10/19 08:11 [From Benadryl] stop talking" Home Medications Home Medications Medication Instructions Recorded Confirmed Type pantoprazole 40 mg PO BID #0 08/08/11 06/10/19 History ranitidine HCl 300 mg PO BID #0 06/01/12 06/10/19 History fluticasone 500 mcg-salmeterol 50 1 inh INHALATION DAILY #60 ea 02/11/19 06/10/19 Rx mcg/dose blistr powdr for inhalation montelukast 10 mg tablet 10 mg PO PM #90 tab 02/15/19 06/10/19 Rx acetaminophen ER 650 mg 1,300 mg PO BID PRN #60 tab 03/11/19 06/10/19 History tablet,extended release docusate sodium 100 mg capsule 100 mg PO BID cap 03/11/19 06/10/19 History epinephrine 0.3 mg/0.3 mL 0.3 ml IM UD PRN #1 ea 03/11/19 06/10/19 History injection, auto-injector venlafaxine ER 75 mg 75 mg PO DAILY #90 cap 03/11/19 06/10/19 History capsule,extended release 24 hr albuterol sulfate HFA 90 1 puffs INH Q6H PRN #18 gm 03/15/19 06/10/19 Rx mcg/actuation aerosol inhaler fexofenadine 180 mg tablet 180 mg PO DAILY PRN #90 tab 05/16/19 06/10/19 Rx cholecalciferol (vitamin D3) 5,000 unit PO DAILY 11/11/19 11/11/19 History [Vitamin D3] Past Med/Surg History Medical History Hiatal hernia (Chronic) TIA involving basilar artery (Acute) Vertebrobasilar circulation transient ischemic attack (Acute 12/09/13) Gallstones (Chronic) Breast cancer Chronic kidney disease Chronic kidney disease, stage 3 Vertigo Vomiting Surgical History History of mandibular surgery History of modified radical mastectomy History of tonsillectomy S/P small bowel resection Family History Other Cancer Social History Preferred Language: Vietnamese Communication Ability: Effective Calender Worker Helper Required: No Beliefs That Will Affect Care: None marital status: / Current Living Situation: Alone Current Living Situation Comment: Lives with 2 cats and 1 dog. 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 Other Information That Helps Us Care for You: No Feels Safe at Home: Yes Safety Concerns: Feels Safe At This Time Smoking Status: Never smoker Hx Alcohol Use: No Hx Substance Use: No Review of Systems Review of Systems: All systems reviewed & are unremarkable except as noted in HPI & below Constitutional: no fever, no chills, no sweats, no fatigue and no weakness Respiratory: no cough and no dyspnea Cardiovascular: no chest pain, no palpitations and no edema Gastrointestinal: + abdominal pain, + belching, + early satiety, + nausea, + vomiting and + constipation; no diarrhea/loose stools and no blood in stools Genitourinary: no dysuria, no urinary frequency and no urinary hesitancy Musculoskeletal: no back pain, no joint pain, no stiffness and no muscle weakness Neurologic: no gait abnormality, no unsteadiness, no tremor(s), no seizure- like activity, no syncope and no headache(s) Physical Exam Constitutional: WD/WN, vitals as above Eyes: PERRL, conjunctivae normal, anicteric sclerae ENMT: external ear and nose normal, oropharynx normal Neck: trachea midline, no thyromegaly Respiratory: normal respiratory effort, lungs clear to auscultation Cardiovascular: RRR, no murmur, no edema Gastrointestinal (Abdomen): Inspection/Auscultation: + abdomen distended and normal bowel sounds (sounds heard in chest anteriorly) Percussion/Palpation: abdomen soft; abdomen nontender, no guarding, abdomen not rigid and no ascites Musculoskeletal: no cyanosis or clubbing, extremities motor strength 5/5 Skin: no rashes, warm and dry Neurologic: patellar DTR's 2+ bilat, sensation intact and PERRL, EOMI, accommodation nl, no face palsy, no dysarthria Psychiatric: A+Ox3, euthymic affect Lymphatic: no cervical or axillary lymphadenopathy Results & Data Vital Signs (Past 12 Hours) Vital Signs Temp Pulse Pulse Resp BP BP Pulse Ox 06/10/19 08:01 87 22 117/62 95 06/10/19 08:00 36.9 C 88 20 125/78 95 06/10/19 07:18 85 26 H 129/72 95 06/10/19 06:23 89 21 163/61 H 99 06/10/19 05:57 36.6 C 82 19 174/82 H 100 06/10/19 05:15 87 16 123/60 99 06/10/19 04:18 96 06/10/19 03:59 37.2 C 84 17 153/108 H 98 06/10/19 03:52 37.2 C 86 20 153/108 H 99 Laboratory Results Laboratory Results - last 24 hr 06/10/19 06/10/19 06/10/19 04:00 04:00 04:21 WBC 9.10 RBC 5.13 Hgb 14.9 POC Hgb 15.0 Hct 44.2 POC Hct 44 MCV 86.2 MCH 29.0 MCHC 33.7 RDW Std Deviation 40.6 RDW Coeff of [place] 12.7 Plt Count 245 MPV 9.4 Immature Gran % (Auto) 0.3 Neut % (Auto) 71.3 Lymph % (Auto) 19.0 [place] % (Auto) 8.0 Eos % (Auto) 1.2 Baso % (Auto) 0.2 Immature Gran # (Auto) 0.03 H Neut # (Auto) 6.48 Lymph # (Auto) 1.73 [place] # (Auto) 0.73 H Eos # (Auto) 0.11 Baso # (Auto) 0.02 POC Sodium 140 Sodium 141 POC Potassium 3.6 Potassium 3.6 POC Chloride 102 Chloride 105 Carbon Dioxide 29 POC Total CO2 26 Anion Gap 7.0 POC Anion Gap 16.0 POC BUN 20 H BUN 20 H Creatinine 1.32 H POC Creatinine 1.4 H Est Cr Clr Drug Dosing 32.4 Est GFR ( Amer) 44.4 Est GFR (Non-Af Amer) 38.3 BUN/Creatinine Ratio 15.5 Glucose 133 H POC Glucose (other) 134 H Calcium 9.8 POC Ioniz Calcium Giovanni 1.19 Total Bilirubin 0.9 AST 13 L ALT 17 Alkaline Phosphatase 68 Total Creatine Kinase 45 CK-MB (CK-2) < 1.0 CK/CKMB % Calc TNP Troponin I < 0.015 Total Protein 7.3 Albumin 3.4 Globulin 3.9 Albumin/Globulin Ratio 0.9 [address] chest, abdomen/pelvis IMPRESSION: 1. Large hiatal hernia containing the majority of the stomach. There is distention of the stomach portions both above and below the diaphragm with decompression of the gastric antrum at the level of the diaphragmatic hiatus. 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 2. Thickening of the esophagus with surrounding fluid. This favors a nonspecific esophagitis. 3. Cholelithiasis. 4. Additional findings as described above. Medications Administered Current Inpatient Medications Potassium Chloride 10 meq/ (Sodium Chloride) 1,005 mls @ 80 mls/hr IV .[id number] JUAN PABLO Stop: 07/10/19 10:29 Ioversol (Optiray 320 100ml) 100 ml IV ONCE PRN PRN Reason: Interaction Checking Stop: 06/14/19 05:23 Last Admin: 06/10/19 05:24 Dose: 92 ml Documented by: Ondansetron HCl (Zofran) 4 mg IV Q6H PRN PRN Reason: Nausea Stop: 07/10/19 08:08 Code Status & VTE Plan Code Status full code VTE Prophylaxis Plan VTE Prophylaxis will be ordered: Yes PG Care Time/CCT Total # of Minutes Spent Total Time Spent with Patient: Total time spent is greater than 50% in coordination of care (as documented) at patient's floor/unit and/or counseling patient:
[2019-06-10] MEDS: POTASSIUM CHLORIDE 10 MEQ in SODIUM CHLORIDE 0.9% 1000ML 1,000 ML IV SCH (11:32)
--- NOTE | 2019-06-10 12:04 | Anesthesiology Consultation ---
Date of Service June 10, 2019 Assessment & Plan (1) Encounter for pre-operative examination: Chart Review Chart Review: Acceptable Risk for Surgery and Patient NOT seen in Pre Admission Testing Consults Requested none History Surgery Operation Date: 06/10/19 18:00 Proposed Procedures p Esophagogastroduodenoscopy Dr Whipple - Raman Mckenna Case, DO Height/Weight Height: 5 ft 6 in Weight: 64.4 kg Allergies Allergy/AdvReac Type Severity Reaction Status Date / Time Penicillins Allergy Intermediate Rash Verified 06/10/19 11:08 mirtazapine [From Remeron] Allergy Unknown Unknown Verified 06/10/19 11:08 diphenhydramine AdvReac Intermediate "couldn't Verified 06/10/19 08:11 [From Benadryl] stop talking" Medications Home Medications Medication Instructions Recorded Confirmed Last Taken pantoprazole 40 mg PO BID #0 08/08/11 06/10/19 Unknown ranitidine HCl 300 mg PO BID #0 06/01/12 06/10/19 Unknown fluticasone 500 mcg-salmeterol 50 1 inh INHALATION DAILY #60 ea 02/11/19 06/10/19 Unknown mcg/dose blistr powdr for inhalation montelukast 10 mg tablet 10 mg PO PM #90 tab 02/15/19 06/10/19 Unknown acetaminophen ER 650 mg 1,300 mg PO BID PRN #60 tab 03/11/19 06/10/19 Unknown tablet,extended release docusate sodium 100 mg capsule 100 mg PO BID cap 03/11/19 06/10/19 Unknown epinephrine 0.3 mg/0.3 mL 0.3 ml IM UD PRN #1 ea 03/11/19 06/10/19 Unknown injection, auto-injector venlafaxine ER 75 mg 75 mg PO DAILY #90 cap 03/11/19 06/10/19 Unknown capsule,extended release 24 hr albuterol sulfate HFA 90 1 puffs INH Q6H PRN #18 gm 03/15/19 06/10/19 Unknown mcg/actuation aerosol inhaler fexofenadine 180 mg tablet 180 mg PO DAILY PRN #90 tab 05/16/19 06/10/19 Unknown cholecalciferol (vitamin D3) 5,000 unit PO DAILY 06/10/19 06/10/19 Unknown [Vitamin D3] Active Medications Generic Name Dose Route Start Last Admin Trade Name Freq PRN Reason Stop Dose Admin Potassium Chloride 10 meq/ 1,005 mls @ 80 mls/hr 06/10/19 10:45 06/10/19 1 1:32 Sodium Chloride IV 07/10/19 10:29 80 mls/hr .[id number] JUAN PABLO Administration Ioversol 100 ml 06/10/19 05:24 06/10/19 05:24 Optiray 320 100ml IV 06/14/19 05:23 92 ml ONCE PRN Administration Interaction Checking NPO Date Last Intake of Fluids: 06/08/19 Time Last Intake of Fluids: 19:00 Past Medical History Medical History Hiatal hernia (Chronic) TIA involving basilar artery (Acute) Vertebrobasilar circulation transient ischemic attack (Acute 12/09/13) Gallstones (Chronic) Breast cancer Chronic kidney disease Chronic kidney disease, stage 3 Vertigo Vomiting Past Family History Family History Other Cancer Past Surgical History Surgical History History of mandibular surgery History of modified radical mastectomy History of tonsillectomy S/P small bowel resection Social History Smoking Status: Never smoker Hx Alcohol Use: No Hx Substance Use: No Physical Exam Vital Signs Last Vital Signs Temp 36.7 C 06/10/19 11:50 Pulse 82 06/10/19 11:50 Resp 18 06/10/19 11:50 BP 130/64 06/10/19 11:50 Pulse Ox 95 06/10/19 11:50 Testing Laboratory Results 06/10/19 04:00 06/10/19 04:00 06/10/19 04:21 POC Glucose (other) 134 H
[2019-06-10] MEDS ORDERED: ATROPINE SULFATE 0.1 MG/ML 10ML SYR IV PRN (12:07)
[2019-06-10] MEDS ORDERED: ePHEDrine sulfate 50 MG/ML AMP IV PRN (12:07)
--- NOTE | 2019-06-10 13:04 | GI REPORT ---
Patient Name: Aspen Bingham Procedure Date: 06/10/2019 12:27 PM Date of : 1940 Admit Type: Inpatient Age: 78 Gender: Female Attending MD: Raman Whipple DO Procedure: Upper GI endoscopy Providers: Raman Whipple DO Referring MD: Carlton Mcguire Indications: Abnormal CT of the GI tract Medicines: Monitored Anesthesia Care Complications: No immediate complications. Estimated Blood Loss: Estimated blood loss: none. Procedure: Pre-Anesthesia Assessment: - Prior to the procedure, a History and Physical was performed, and patient medications and allergies were reviewed. The patient's tolerance of previous anesthesia was also reviewed. The risks and benefits of the procedure and the sedation options and risks were discussed with the patient. All questions were answered, and informed consent was obtained. Prior Anticoagulants: The patient has taken no previous anticoagulant or antiplatelet agents. ASA Grade Assessment: III - A patient with severe systemic disease. After reviewing the risks and benefits, the patient was deemed in satisfactory condition to undergo the procedure. After obtaining informed consent, the endoscope was passed under direct vision. Throughout the procedure, the patient's blood pressure, pulse, and oxygen saturations were monitored continuously. The Endoscope was introduced through the mouth, and advanced to the second part of duodenum. The upper GI endoscopy was performed with difficulty due to abnormal anatomy. The patient tolerated the procedure well. Findings: A large paraesophageal hernia was found. Estimated blood loss: none. A medium amount of food (residue) was found in the gastric body. Impression: - Large paraesophageal hernia. - A medium amount of food (residue) in the stomach. - No specimens collected. Recommendation: - [facility] care. - NPO. - Continue present medications. - Refer to a surgeon today. Raman Whipple DO 06/10/2019 1:04:16 PM This report has been signed electronically. Note Initiated On: 06/10/2019 12:27 PM Number of Addenda: 0 I attest to the content of the Intraoperative Record and orders documented therein, exceptions below {[id number]}
[2019-06-10] MEDS ORDERED: LIDOCAINE HCL 2% 2 ML VIAL/AMP(20MG/ML) INFIL ONE (13:15)
[2019-06-10] MEDS ORDERED: PROPOFOL IV EMULSION 10 MG/ML 20 ML VIAL IV ONE (13:15)
[2019-06-10] MEDS: HEPARIN SOD 5,000 UNIT/0.5 ML VIAL SQ SCH ×2 (14:10→22:13)
--- NOTE | 2019-06-10 16:18 | Anesthesiology Progress Note ---
Date of Service June 10, 2019 Anesthesia Post Procedure Vital Signs Vital Signs: Temp Pulse Pulse Resp BP BP Pulse Ox 06/10/19 15:33 37.0 C 89 18 119/55 L 97 06/10/19 14:03 37.1 C 83 18 125/43 L 98 06/10/19 13:27 81 16 133/59 L 99 06/10/19 13:12 81 16 138/85 96 06/10/19 12:57 85 16 99/52 L 95 06/10/19 11:50 36.7 C 82 18 130/64 95 06/10/19 08:01 87 22 117/62 95 06/10/19 08:00 36.9 C 88 20 125/78 95 06/10/19 07:18 85 26 H 129/72 95 06/10/19 06:23 89 21 163/61 H 99 06/10/19 05:57 36.6 C 82 19 174/82 H 100 06/10/19 05:15 87 16 123/60 99 06/10/19 04:18 96 06/10/19 03:59 37.2 C 84 17 153/108 H 98 06/10/19 03:52 37.2 C 86 20 153/108 H 99 Pain Intensity Abdomen: Pain Intensity: 0 Transfer of Care Handoff Completed per policy Notes Mental Status: alert / awake / arousable and participated in evaluation Patient Amnestic to Procedure: Yes Nausea / Vomiting: adequately controlled Pain: adequately controlled Airway Patency, RR, SpO2: stable & adequate BP & HR: stable & adequate Hydration State: stable & adequate Anesthetic Complications: no major complications apparent and Pt Satisfied with anesthetic care
--- NOTE | 2019-06-10 16:47 | Surgery Consultation ---
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 She underwent an EGD earlier today demonstrated no evidence of ischemia. She does have what appears to be a possible bezoar. There appears to be a sliding as well as a paraesophageal component to this her. I discussed with her going to [place] for consultation with our foregut specialist. I will be in contact with him. We will await their opinion. There is no evidence of peritonitis or ischemia at the present time. History of Present Illness Reason for Consultation: Gastric volvulus Requesting Physician: Carlton Mcguire DO Attending Physician: Carlton Mcguire DO History of Present Illness I been asked by Dr. Mcguire to see this 78-year-old female who presented to the emergency room with a complaint of nausea and vomiting. The patient stated that she ate a cheese steak on Monday evening and since then has not been able to keep even liquids down. She vomited the cheese steak. She then tried to eat other foods and vomited those. She is even vomiting water. She had some mild upper abdominal discomfort but no sharp pain. She had no fever or chills. Her bowels have been moving normally. She had no melena or hematochezia. She denied dysuria and hematuria. She has a known large hiatal hernia. Allergies Allergy/AdvReac Type Severity Reaction Status Date / Time Penicillins Allergy Intermediate Rash Verified 06/10/19 11:08 mirtazapine [From Remeron] Allergy Unknown Unknown Verified 06/10/19 11:08 diphenhydramine AdvReac Intermediate "couldn't Verified 06/10/19 08:11 [From Benadryl] stop talking" Home Medications Home Medications Medication Instructions Recorded Confirmed Type pantoprazole 40 mg PO BID #0 08/08/11 06/10/19 History ranitidine HCl 300 mg PO BID #0 06/01/12 06/10/19 History fluticasone 500 mcg-salmeterol 50 1 inh INHALATION DAILY #60 ea 02/11/1906/10 Rx mcg/dose blistr powdr for inhalation montelukast 10 mg tablet 10 mg PO PM #90 tab 02/15/19 06/10/19 Rx acetaminophen ER 650 mg 1,300 mg PO BID PRN #60 tab 03/11/19 06/10/19 History tablet,extended release docusate sodium 100 mg capsule 100 mg PO BID cap 03/11/19 06/10/19 History epinephrine 0.3 mg/0.3 mL 0.3 ml IM UD PRN #1 ea 03/11/19 06/10/19 History injection, auto-injector venlafaxine ER 75 mg 75 mg PO DAILY #90 cap 03/11/19 06/10/19 History capsule,extended release 24 hr albuterol sulfate HFA 90 1 puffs INH Q6H PRN #18 gm 03/15/19 06/10/19 Rx mcg/actuation aerosol inhaler fexofenadine 180 mg tablet 180 mg PO DAILY PRN #90 tab 05/16/19 06/10/19 Rx cholecalciferol (vitamin D3) 5,000 unit PO DAILY 06/10/19 06/10/19 History [Vitamin D3] Patient History Medical History Hiatal hernia (Chronic) TIA involving basilar artery (Acute) Vertebrobasilar circulation transient ischemic attack (Acute 12/09/13) Gallstones (Chronic) Breast cancer Chronic kidney disease Chronic kidney disease, stage 3 Vertigo Vomiting Surgical History History of mandibular surgery History of modified radical mastectomy History of tonsillectomy S/P small bowel resection Family History Other Cancer Social History Preferred Language: Mongolian Communication Ability: Effective Stars Specialist Required: No Beliefs That Will Affect Care: None marital status: / Current Living Situation: Alone Current Living Situation Comment: Lives with 2 cats and 1 dog. 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 Other Information That Helps Us Care for You: No Feels Safe at Home: Yes Safety Concerns: Feels Safe At This Time Smoking Status: Never smoker Hx Alcohol Use: No Hx Substance Use: No Review of Systems Review of Systems: All systems reviewed & are unremarkable except as noted in HPI & below Physical Exam Constitutional: no acute distress Neck: trachea midline Respiratory: normal respiratory effort, lungs clear to auscultation Cardiovascular: Rate/Rhythm: regular rate and regular rhythm Gastrointestinal (Abdomen): Inspection/Auscultation: abdomen normal to inspection; abdomen not distended Percussion/Palpation: abdomen soft; abdomen nontender and no abdominal mass Skin: no rashes, warm and dry Lymphatic: no cervical lymphadenopathy and no subclavicular lymphadenopathy Results & Data Vital Signs (Past 12 Hours) Vital Signs Temp Pulse Pulse Resp BP BP Pulse Ox 06/10/19 15:33 37.0 C 89 18 119/55 L 97 06/10/19 14:03 37.1 C 83 18 125/43 L 98 06/10/19 13:27 81 16 133/59 L 99 06/10/19 13:12 81 16 138/85 96 06/10/19 12:57 85 16 99/52 L 95 06/10/19 11:50 36.7 C 82 18 130/64 95 06/10/19 08:01 87 22 117/62 95 06/10/19 08:00 36.9 C 88 20 125/78 95 06/10/19 07:18 85 26 H 129/72 95 06/10/19 06:23 89 21 163/61 H 99 06/10/19 05:57 36.6 C 82 19 174/82 H 100 06/10/19 05:15 87 16 123/60 99 Laboratory Results 06/10/19 06/10/19 06/10/19 Range/Units 04:21 04:00 04:00 WBC 9.10 (4.8-10.8) K/uL RBC 5.13 (4.2-5.4) M/uL Hgb 14.9 (12.0-16.0) g/dL POC Hgb 15.0 (12.0-16.0) g/dl Hct 44.2 (37-47) % POC Hct 44 (37-47) % MCV 86.2 (80-100) fL MCH 29.0 (25-34) pg MCHC 33.7 (32-36) g/dL RDW Std Deviation 40.6 (36.4-46.3) fL RDW Coeff of Chayo 12.7 (11.5-14.5) % Plt Count 245 (130-400) K/uL MPV 9.4 (7.4-10.4) fL Immature Gran % (Auto) 0.3 % Neut % (Auto) 71.3 % Lymph % (Auto) 19.0 % Webster % (Auto) 8.0 % Eos % (Auto) 1.2 % Baso % (Auto) 0.2 % Immature Gran # (Auto) 0.03 H (0.00-0.02) K/uL Neut # (Auto) 6.48 (1.4-6.5) K/uL Lymph # (Auto) 1.73 (1.2-3.4) K/uL Webster # (Auto) 0.73 H (0.11-0.59) K/uL Eos # (Auto) 0.11 (0-0.5) K/uL Baso # (Auto) 0.02 (0-0.2) K/uL POC Sodium 140 (135-144) mEq/L Sodium 141 (136-145) mmol/L POC Potassium 3.6 (3.3-5.0) mEq/L Potassium 3.6 (3.5-5.1) mmol/L POC Chloride 102 (101-112) mEq/L Chloride 105 (98-107) mmol/L Carbon Dioxide 29 (21-32) mmol/L POC Total CO2 26 (24-31) mEq/l Anion Gap 7.0 (3-11) POC Anion Gap 16.0 (16-25) mmol/L POC BUN 20 H (7-18) mg/dl BUN 20 H (7-18) mg/dl Creatinine 1.32 H (0.6-1.2) mg/dl POC Creatinine 1.4 H (0.6-1.3) mg/dl Est Cr Clr Drug Dosing 32.4 ml/min Est GFR ( Amer) 44.4 Est GFR (Non-Af Amer) 38.3 BUN/Creatinine Ratio 15.5 (10-20) Glucose 133 H (70-99) mg/dl POC Glucose (other) 134 H (70-99) mg/dl Calcium 9.8 (8.5-10.1) mg/dl POC Ioniz Calcium Giovanni 1.19 (1.12-1.32) mmol/l Total Bilirubin 0.9 (0.2-1) mg/dl AST 13 L (15-37) U/L ALT 17 (12-78) U/L Alkaline Phosphatase 68 (45-117) U/L Total Creatine Kinase 45 (26-192) U/L CK-MB (CK-2) < 1.0 (0.5-3.6) ng/ml CK/CKMB % Calc TNP Troponin I < 0.015 (0-0.045) ng/ml Total Protein 7.3 (6.4-8.2) gm/dl Albumin 3.4 (3.4-5.0) gm/dl Globulin 3.9 (2.5-4.0) gm/dl Albumin/Globulin Ratio 0.9 (0.9-2) Lipase 186 (73-393) U/L Diagnostic Findings CHEST, ABDOMEN, AND PELVIS CT WITH CONTRAST CT DOSE: 484.35 mGy.cm HISTORY: Pt vomiting, hiatal hernia TECHNIQUE: Multiaxial CT images of the chest, abdomen, pelvis were performed following the intravenous administration of contrast. A dose lowering technique was utilized adhering to the principles of ALARA. COMPARISON: Chest CTA 08/30/2007. Abdomen and pelvis CT 05/23/2018. FINDINGS: Chest CT: There is diffuse thickening of the esophagus with a small amount of adjacent fluid. 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 Distention of the stomach portions both above and below the diaphragm. The gastric antrum is decompressed at the level of the diaphragmatic hiatus. No mediastinal or hilar lymphadenopathy. The mediastinal vascular structures are within normal limits. The heart is normal in size. Trace right pleural effusion. No pericardial effusions. Suggestion of a prior right mastectomy. No suspicious lytic or blastic osseous lesions. Linear density adjacent to the hiatus hernia consistent with atelectasis. No pneumothorax. Stable subcentimeter nodule within the right lower lobe on image 144 the largest measuring 4 mm. Therefore, these are considered to be benign. No new focal lung consolidations to suggest pneumonia. The central airways are patent. Abdomen and pelvis CT: The hiatus hernia is described above. Cholelithiasis. No gallbladder wall thickening. The pancreas, spleen, and adrenal glands are unremarkable. A few hepatic and renal hypodense lesions remain stable. These favor cysts. No retroperitoneal lymphadenopathy. The visualized appendix is unremarkable. The bladder, uterus, bilateral adnexa are within normal limits. There is trace pelvic free fluid. No dilated loops of large or small bowel. Small bowel anastomosis within the mid abdomen is again noted. No suspicious lytic or blastic osseous lesions. IMPRESSION: 1. Large hiatal hernia containing the majority of the stomach. There is distention of the stomach portions both above and below the diaphragm with decompression of the gastric antrum at the level of the diaphragmatic hiatus. 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 2. Thickening of the esophagus with surrounding fluid. This favors a nonspecific esophagitis. 3. Cholelithiasis. 4. Additional findings as described above.
[2019-06-11] MEDS: POTASSIUM CHLORIDE 10 MEQ in SODIUM CHLORIDE 0.9% 1000ML 1,000 ML IV SCH ×2 (00:01→11:42)
[2019-06-11] MEDS: HEPARIN SOD 5,000 UNIT/0.5 ML VIAL SQ SCH ×3 (05:59→21:28)
[2019-06-11 09:12] LABS: Hematocrit (blood only) 37.6 % (37-47); Hemoglobin 12.5 g/dL (12.0-16.0); Mean Corpuscular Hemoglobin 29.1 pg (25-34); Mean Corpuscular Hgb Conc 33.2 g/dL (32-36); Mean Corpuscular Volume 87.4 fL (80-100); Platelet Count 171 K/uL (130-400); RDW Standard Deviation 42.2 fL (36.4-46.3)
[2019-06-11 09:32] LABS: Albumin Globulin Ratio 0.8 (0.9-2); Albumin Level 2.8 gm/dl (3.4-5.0); BUN Creatinine Ratio 16.5 (10-20); Bilirubin,Total 0.9 mg/dl (0.2-1); Calcium 8.4 mg/dl (8.5-10.1); Creatinine Clr Calc Pharmacy 43.6 ml/min; Est GFR (African American) 63.6; Est GFR (Non-African American) 54.9; Globulin 3.5 gm/dl (2.5-4.0); Potassium 3.7 mmol/L (3.5-5.1); Total Protein 6.3 gm/dl (6.4-8.2)
--- NOTE | 2019-06-11 09:35 | Surgery Progress Note ---
Date of Service June 11, 2019 Assessment & Plan (1) Volvulus of stomach: No evidence of peritonitis Am in contact with minimally invasive/forgot surgery in [place] Awaiting the return call Can try clear liquids Subjective No further nausea or vomiting Tolerated ice chips and water Physical Exam Gastrointestinal (Abdomen): Inspection/Auscultation: normal bowel sounds; abdomen not distended Percussion/Palpation: abdomen soft; abdomen nontender Results & Data Vital Signs (Past 12 Hours) Vital Signs Temp Pulse Resp BP Pulse Ox 06/10/19 22:50 37 C 78 18 108/60 97
--- NOTE | 2019-06-11 10:17 | Gastroenterology Progress Note ---
Date of Service June 11, 2019 Assessment & Plan (1) Hiatal hernia: (2) Vomiting: (3) Volvulus of stomach: 1. Continue clear liquid diet. 2. Defer to general surgery at this time for further recommendations. 3. Continue supportive care. Supervising Physician Co-Signing Physician Notes I personally evaluated the patient and agree with the findings as documented by DANELLE Ferreira Exam: abd: soft, nt, nd Subjective Patient status post EGD with findings of large paraesophageal hernia with bezoar. Dr. Washington is following and plan to discuss case with foregut surgeon at [facility] in [place], [place]. Tolerating clear liquids. Denies any n/v or abdominal pain. Review of Systems Constitutional: no fever and no chills Respiratory: no cough Cardiovascular: no chest pain Gastrointestinal: as per Subjective / HPI Physical Exam Constitutional: WD/WN, vitals as above Respiratory: normal respiratory effort, lungs clear to auscultation Cardiovascular: Rate/Rhythm: regular rate and regular rhythm Gastrointestinal (Abdomen): normal bowel sounds, soft, nontender, no hepatosplenomegaly Results & Data Vital Signs (Past 12 Hours) Vital Signs Temp Pulse Resp BP Pulse Ox 06/10/19 22:50 37 C 78 18 108/60 97 Laboratory Results Abnormal lab results 06/11/19 Range/Units 09:00 Chloride 110 H (98-107) mmol/L Calcium 8.4 L (8.5-10.1) mg/dl AST 14 L (15-37) U/L Total Protein 6.3 L (6.4-8.2) gm/dl Albumin 2.8 L (3.4-5.0) gm/dl Albumin/Globulin Ratio 0.8 L (0.9-2) PG Care Time/CCT Total # of Minutes Spent Total Time Spent with Patient: Total time spent is greater than 50% in coordination of care (as documented) at patient's floor/unit and/or counseling patient:
--- NOTE | 2019-06-11 17:16 | Hospitalist Progress Note ---
Date of Service June 11, 2019 Assessment & Plan (1) Volvulus of stomach: associated with large hiatal hernia that is chronic issue acute onset vomiting on Monday night, 36 hours prior to admission NG tube pulled after EGD, Zofran PRN EGD on 06/10 showed the large paraesophageal hiatal hernia, retained food in the stomach NSS + K at 80cc/hr while not taking PO well d/w Dr. Washington, high chance of patient going to [place] for surgery will either directly transfer to follow up outpatient allow clears today will know plan definitively tomorrow (2) Vomiting: Zofran PRN due to volvulus (3) Hiatal hernia: consult general surgery for recommendations on repair would need repaired at [place] (4) Asthma: no wheezing on exam, breathing comfortably (5) Osteopenia: hold oral supplements for time being (6) Generalized osteoarthritis: (7) Hyperlipidemia: hold home meds while NPO (8) Allergic rhinitis: (9) GERD (gastroesophageal reflux disease): no indication for Protonix IV for now, can resume PO once okay with GI/surgery (10) Depression: Subjective patient tolerating some liquids today discussed with Dr. Washington, he is waiting to hear back from colleagues at [facility] ille they are trying to view our CT of the abdomen to give their recommendations either will be transferred to [place] or will go home with outpatient referral, depends on if she can tolerate clears will watch overnight patient okay with this plan Review of Systems Review of Systems: All systems reviewed & are unremarkable except as noted in HPI & below Gastrointestinal: + nausea and + constipation; no abdominal pain, no vomiting and no diarrhea/loose stools Physical Exam Constitutional: WD/WN, vitals as above Eyes: PERRL, conjunctivae normal, anicteric sclerae ENMT: external ear and nose normal, oropharynx normal Neck: trachea midline, no thyromegaly Respiratory: normal respiratory effort, lungs clear to auscultation Cardiovascular: RRR, no murmur, no edema Gastrointestinal (Abdomen): Inspection/Auscultation: + abdomen distended and normal bowel sounds (sounds heard in chest anteriorly) Percussion/Palpation: abdomen soft; abdomen nontender, no guarding, abdomen not rigid and no ascites Musculoskeletal: no cyanosis or clubbing, extremities motor strength 5/5 Skin: no rashes, warm and dry Neurologic: patellar DTR's 2+ bilat, sensation intact and PERRL, EOMI, accommodation nl, no face palsy, no dysarthria Psychiatric: A+Ox3, euthymic affect Lymphatic: no cervical or axillary lymphadenopathy Results & Data Vital Signs (Past 12 Hours) Vital Signs Temp Pulse Resp BP Pulse Ox 06/11/19 15:28 36.8 C 73 16 129/71 97 06/11/19 08:20 36.8 C 77 18 125/79 97 Laboratory Results Laboratory Results - last 24 hr 06/11/19 06/11/19 09:00 09:00 WBC 5.70 RBC 4.30 Hgb 12.5 Hct 37.6 MCV 87.4 MCH 29.1 MCHC 33.2 RDW Std Deviation 42.2 RDW Coeff of Chayo 13.0 Plt Count 171 MPV 9.0 Sodium 141 Potassium 3.7 Chloride 110 H Carbon Dioxide 23 Anion Gap 9.0 BUN 16 Creatinine 0.98 D Est Cr Clr Drug Dosing 43.6 Est GFR ( Amer) 63.6 Est GFR (Non-Af Amer) 54.9 BUN/Creatinine Ratio 16.5 Glucose 72 Calcium 8.4 L Total Bilirubin 0.9 AST 14 L ALT 14 Alkaline Phosphatase 57 Total Protein 6.3 L Albumin 2.8 L Globulin 3.5 Albumin/Globulin Ratio 0.8 L Medications Administered Current Inpatient Medications Heparin Sodium (Porcine) (Heparin Sodium (Porcine)) 5,000 units SQ Q8 COUNTS INCLUDE 234 BEDS AT THE [facility] Stop: 07/10/19 13:59 Last Admin: 06/11/19 14:05 Dose: 5,000 units Documented by: Potassium Chloride 10 meq/ (Sodium Chloride) 1,005 mls @ 80 mls/hr IV .[id number] COUNTS INCLUDE 234 BEDS AT THE [facility] Stop: 07/10/19 10:29 Last Admin: 06/11/19 11:42 Dose: 80 mls/hr Documented by: Ioversol (Optiray 320 100ml) 100 ml IV ONCE PRN PRN Reason: Interaction Checking Stop: 06/14/19 05:23 Last Admin: 06/10/19 05:24 Dose: 92 ml Documented by: Ondansetron HCl (Zofran) 4 mg IV Q6H PRN PRN Reason: Nausea Stop: 07/10/19 08:08 PG Care Time/CCT Total # of Minutes Spent Total Time Spent with Patient: Total time spent is greater than 50% in co ordination of care (as documented) at patient's floor/unit and/or counseling patient:
[2019-06-12] MEDS: POTASSIUM CHLORIDE 10 MEQ in SODIUM CHLORIDE 0.9% 1000ML 1,000 ML IV SCH ×2 (00:09→12:44)
[2019-06-12] MEDS: HEPARIN SOD 5,000 UNIT/0.5 ML VIAL SQ SCH ×2 (05:44→13:42)
--- NOTE | 2019-06-12 06:57 | Surgery Progress Note ---
Date of Service June 12, 2019 Assessment & Plan (1) Volvulus of stomach: This patient is doing well without nausea and vomiting Would start full liquid diet If tolerates that this morning and for lunch will discharge to home and continue with appointment in [place] tomorrow If develops nausea and vomiting then consider transfer today Subjective Feels well today Denies nausea and vomiting Tolerated clear liquids out nausea Denies abdominal pain Physical Exam Gastrointestinal (Abdomen): Inspection/Auscultation: abdomen not distended Percussion/Palpation: abdomen soft; abdomen nontender and no abdominal mass Results & Data Vital Signs (Past 12 Hours) Vital Signs Temp Pulse Resp BP Pulse Ox 06/11/19 22:55 36.9 C 77 14 131/67 97 Laboratory Results 06/11/19 06/11/19 Range/Units 09:00 09:00 WBC 5.70 (4.8-10.8) K/uL RBC 4.30 (4.2-5.4) M/uL Hgb 12.5 (12.0-16.0) g/dL Hct 37.6 (37-47) % MCV 87.4 (80-100) fL MCH 29.1 (25-34) pg MCHC 33.2 (32-36) g/dL RDW Std Deviation 42.2 (36.4-46.3) fL RDW Coeff of Chayo 13.0 (11.5-14.5) % Plt Count 171 (130-400) K/uL MPV 9.0 (7.4-10.4) fL Sodium 141 (136-145) mmol/L Potassium 3.7 (3.5-5.1) mmol/L Chloride 110 H (98-107) mmol/L Carbon Dioxide 23 (21-32) mmol/L Anion Gap 9.0 (3-11) BUN 16 (7-18) mg/dl Creatinine 0.98 D (0.6-1.2) mg/dl Est Cr Clr Drug Dosing 43.6 ml/min Est GFR ( Amer) 63.6 Est GFR (Non-Af Amer) 54.9 BUN/Creatinine Ratio 16.5 (10-20) Glucose 72 (70-99) mg/dl Calcium 8.4 L (8.5-10.1) mg/dl Total Bilirubin 0.9 (0.2-1) mg/dl AST 14 L (15-37) U/L ALT 14 (12-78) U/L Alkaline Phosphatase 57 (45-117) U/L Total Protein 6.3 L (6.4-8.2) gm/dl Albumin 2.8 L (3.4-5.0) gm/dl Globulin 3.5 (2.5-4.0) gm/dl Albumin/Globulin Ratio 0.8 L (0.9-2)
--- NOTE | 2019-06-12 15:03 | Discharge Summary ---
Date of Service June 12, 2019 Admission HPI Per Admitting Provider 78 yo female with long history of hiatal hernia as well as multiple surgeries for small bowel obstruction, s/p resection of small bowel, presented today with intractable vomiting, unable to even keep liquids down. She said that 2 weeks ago she was diagnosed with mild case of pneumonia at [facility]. She completed a full course of antibiotics and her symptoms improved. She was in her usual state of health until Monday night, 36 hours prior to presentation. At that time she vomited up everything she had eaten for dinner. She continued to have small episodes of vomiting. She progressed to the point that even drinking a little water or tea would cause her to vomit. She had a little bit of abdominal discomfort associated with the vomiting but never true pain. Her last BM was several days ago which is a little unusual for her. She denies any fever, chills, chest pain, dyspnea. She says that her symptoms improve by not eating or drinking and they get worse if she tries to drink anything. She came to the ED this morning given her history of small bowel obstructions. She says that she has had similar symptoms with her SBO. She says that once a year she will get episodes of vomiting that pass after a day or so, this episode was much more intense. In the ED her vitals were stable, labs were stable. CT chest/abdomen/pelvis showed evidence of a very large hiatal hernia with most of the stomach in her chest as well as likely torsion of her stomach, suggestive of a gastric volvulus. Both general surgery and GI were made aware of the patient. NG tube placed in the ED, small amount of bilious fluid drained and patient reported some improvement in her nausea and discomfort. Principal Diagnosis Paraesophageal hernia Discharge Exam Constitutional WD/WN, vitals as above Eyes PERRL, conjunctivae normal, anicteric sclerae ENMT external ear and nose normal, oropharynx normal Neck trachea midline, no thyromegaly Respiratory normal respiratory effort, lungs clear to auscultation Cardiovascular RRR, no murmur, no edema Gastrointestinal (Abdomen) Inspection/Auscultation: abdomen normal to inspection and normal bowel sounds (sounds heard in chest anteriorly) Percussion/Palpation: abdomen soft; abdomen nontender, no guarding, abdomen not rigid and no ascites Musculoskeletal no cyanosis or clubbing, extremities motor strength 5/5 Skin no rashes, warm and dry Neurologic patellar DTR's 2+ bilat, sensation intact and PERRL, EOMI, accommodation nl, no face palsy, no dysarthria Psychiatric A+Ox3, euthymic affect Lymphatic no cervical or axillary lymphadenopathy Discharge Data Allergies Allergy/AdvReac Type Severity Reaction Status Date / Time Penicillins Allergy Intermediate Rash Verified 06/10/19 11:08 mirtazapine [From Remeron] Allergy Unknown Unknown Verified 06/10/19 11:08 diphenhydramine AdvReac Intermediate "couldn't Verified 06/10/19 08:11 [From Benadryl] stop talking" Consultations 06/10/19 07:04 Consult General Surgery Stat 06/10/19 07:09 Consult Gastroenterology Stat 06/10/19 07:14 ED Decision to Admit Stat 06/10/19 08:09 Consult Gastroenterology Routine Consult General Surgery Routine Procedures Performed Operation Date: 06/10/19 18:00 Actual Procedures p Esophagogastroduodenoscopy - Raman Mckenna Case, DO Ordered Studies 06/10/19 04:09 CT abd pelvis IV con only Urgent CT chest w con Urgent Hospital Course (1) 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 Washington, he reached out to surgeons at [place] patient will go there tomorrow at 1pm for outpatient appointment to discuss options patient tolerated liquids yesterday, full liquids this morning and low residue diet this morning no abdominal pain, no vomiting at all d/c home with follow up in [facility] tomorrow with Dr. Diaz (2) Vomiting: Zofran PRN due to volvulus resolved completely for over 48 hours (3) Hiatal hernia: consult general surgery for recommendations on repair would need repaired at [facility] appt tomorrow with Dr. Diaz (4) Asthma: no wheezing on exam, breathing comfortably (5) Osteopenia: hold oral supplements for time being (6) Generalized osteoarthritis: (7) Hyperlipidemia: hold home meds while NPO (8) Allergic rhinitis: (9) GERD (gastroesophageal reflux disease): no indication for Protonix IV for now, can resume PO once okay with GI/surgery (10) Depression: Total Time Total Time Spent Total Time Spent (In Minutes): 31 minutes Total Time Includes: Examination of the Patient, Discharge Planning, Medication Reconciliation, Communication With Other Providers (Dr. Washington) and Other (discussion with patient's family over the phone) Discharge Plan Discharge Items Patient Disposition: Home - Self-Care Reason For Visit: GASTRIC VOLVULUS Discharge Diagnosis: Gastric volvulus Hiatal hernia Vomiting Condition on Discharge: Good Goals: follow up with surgery at [facility] tomorrow Activity: Resume your previous activity Non-emergency contact: Primary Care Provider and Surgeon Call non-emergency contact if: you have any medication questions, your symptoms worsen and you have a fever Follow-up/Referrals: Felipe Lance MD [Primary Care Provider] - Diet: Low Fiber Addtl Attending Provider Instructions: Medications: no changes Volvulus of stomach, paraesophageal hiatal hernia Dr. Washington recommends close follow up with surgery at [facility] appointment scheduled for 1pm tomorrow at [place] with Dr. Diaz please call [phone] for instructions on where to go and what time to arrive and what to bring I will copy him in the discharge summary you had an EGD on Monday that showed the hiatal hernia, no other findings recommend that you follow a low fiber diet (avoid vegetables, fruits, things that are difficult to digest) Pending Studies at Discharge: No Stand-Alone Forms: [facility], Smoking Cessation Medications and DC Order Prescriptions: Continued pantoprazole 40 mg Tablet,Delayed Release (Dr/Ec) 40 mg PO BID Qty: 0 RF: 0 ranitidine HCl 300 mg Tablet 300 mg PO BID Qty: 0 RF: 0 fluticasone propion-salmeterol [Advair Diskus] 500-50 mcg/dose blister with device 1 inh INHALATION DAILY Qty: 60 RF: 3 montelukast 10 mg tablet 10 mg PO PM Qty: 90 RF: 3 albuterol sulfate 90 mcg/actuation HFA aerosol inhaler 1 puffs INH Q6H PRN (Reason: shortness of breath or wheezing) Qty: 18 RF: 3 fexofenadine 180 mg tablet 180 mg PO DAILY PRN (Reason: Allergies) Qty: 90 RF: 3 epinephrine 0.3 mg/0.3 mL auto-injector 0.3 ml IM UD PRN (Reason: anaphylaxis) Qty: 1 RF: 0 docusate sodium 100 mg capsule 100 mg PO BID RF: 0 venlafaxine 75 mg capsule,extended release 24hr 75 mg PO DAILY Qty: 90 RF: 0 acetaminophen 650 mg tablet extended release 1,300 mg PO BID PRN (Reason: fever or pain) Qty: 60 RF: 0 cholecalciferol (vitamin D3) [Vitamin D3] 5,000 unit Tablet 5,000 unit PO DAILY RF: 0 Discharge Orders: Discharge Order (Routine); Ordered 06/12/19 Ordered By: Carlton Macario/Other Patient Handouts: DVT Dc Admission Data Admit Date/Time: 06/10/19 07:27 Attending Provider: Carlton Mcguire Admit Provider: Carlton Mcguire Primary Care Provider: Felipe Lance Other Providers: Manfred Washington ; Raman Whipple ; Carlton Mcguire Other Interventions: Discharge Summary Assessment (RN) Last Done: 06/12/19 14:49
== END 2019-06-12 15:50 | disposition home or self-care (01) | DRG 391 ==
LOC: ED 03:48 → 3N 07:27

== ENCOUNTER 2021-05-31 11:55 | Inpatient (IN) ==
[2021-05-31] MEDS ORDERED: SODIUM CHLORIDE 0.9% 500 ML IV STA (12:24)
[2021-05-31 12:32] LABS: Basophils # (auto) 0.02 K/uL (0-0.2); Basophils % (auto) 0.3 %; Eosinophils # (auto) 0.18 K/uL (0-0.5); Eosinophils % (auto) 3.1 %; Hematocrit (blood only) 44.1 % (37-47); Hemoglobin 14.6 g/dL (12.0-16.0); Immature Granulocytes # (auto) 0.02 K/uL (0.00-0.02); Immature Granulocytes % (auto) 0.3 %; Lymphocytes # (auto) 1.51 K/uL (1.2-3.4); Lymphocytes % (auto) 26.2 %; Mean Corpuscular Hgb Conc 33.1 g/dL (32-36); Mean Corpuscular Volume 87.7 fL (80-100); Mean Platelet Volume 9.5 fL (7.4-10.4); Monocytes # (auto) 0.44 K/uL (0.11-0.59); Monocytes % (auto) 7.6 %; Neutrophils # (auto) 3.59 K/uL (1.4-6.5); Neutrophils % (auto) 62.5 %; Platelet Count 257 K/uL (130-400); RDW Coefficient of Variation 13.2 % (11.5-14.5); RDW Standard Deviation 41.9 fL (36.4-46.3); Red Blood Count 5.03 M/uL (4.2-5.4); White Blood Count 5.76 K/uL (4.8-10.8)
[2021-05-31 12:39] LABS: Alanine Aminotransferase 18 U/L (12-78); Albumin Level 3.5 gm/dl (3.4-5.0); Aspartate Aminotransferase 17 U/L (15-37); BUN Creatinine Ratio 17.1 (10-20); Blood Urea Nitrogen 20 mg/dl (7-18); Calcium 9.2 mg/dl (8.5-10.1); Carbon Dioxide 23 mmol/L (21-32); Chloride 111 mmol/L (98-107); Est GFR (African American) 49.6 ml/min; Est GFR (Non-African American) 42.8 ml/min; Glucose 105 mg/dl (70-99); Magnesium 2.5 mg/dl (1.8-2.4); Potassium 3.7 mmol/L (3.5-5.1); Sodium 142 mmol/L (136-145)
[2021-05-31] MEDS: METOPROLOL TARTRATE 1 MG/ML VIAL IV PRN ×3 (12:39→12:49)
[2021-05-31 12:43] LABS: Partial Thromboplastin Time 26.9 Seconds (21.0-31.0)
[2021-05-31 12:59] LABS: Albumin Globulin Ratio 0.8 (0.9-2); Alkaline Phosphatase 74 U/L (45-117); Bilirubin,Total 0.5 mg/dl (0.2-1); Globulin 4.4 gm/dl (2.5-4.0); Total Protein 7.9 gm/dl (6.4-8.2)
[2021-05-31] MEDS ORDERED: dilTIAZem HCl 5 MG/ML 5 ML VIAL IV STA (13:23)
--- NOTE | 2021-05-31 13:30 | Emergency Department Note ---
History of Present Illness General Chief complaint: Cardiac Assessment Time Seen by Provider: 05/31/21 12:22 History of Present Illness 80-year-old female presents to the ED with a chief complaint of shortness of breath that is worse with exertion. She states that she has been having the symptoms for the past 5 days. She denies any other complaints. She went to urgent care first and was sent here because of rapid a flutter. The patient has no additional complaints. Denies any chest pains. No recent illness or fevers. Home Medications Medication Instructions Recorded Confirmed Type acetaminophen 650 mg 1,300 mg PO BID PRN #60 tab 03/11/19 03/24/21 History tablet,extended release epinephrine 0.3 mg/0.3 mL 0.3 ml IM UD PRN #1 ea 03/11/19 03/24/21 History injection, auto-injector albuterol sulfate 90 mcg/actuation 1 puffs INH Q6H PRN #18 gm 03/15/19 03/24/21 Rx aerosol inhaler cholecalciferol (vitamin D3) 125 5,000 unit PO DAILY 06/10/19 03/24/21 History mcg (5,000 unit) tablet (Vitamin D3) venlafaxine 75 mg capsule,extended 75 mg PO DAILY #90 cap 09/02/20 03/24/21 Rx release 24 hr docusate sodium 100 mg capsule 100 mg PO BID PRN cap 09/24/20 03/24/21 History lubiprostone 8 mcg capsule 8 mcg PO BID PRN cap 09/24/20 03/24/21 History pantoprazole 40 mg tablet,delayed 40 mg PO DAILY #60 tab 09/30/20 03/24/21 Rx release fexofenadine 180 mg tablet 180 mg PO BID #180 tab 11/27/20 03/24/21 Rx famotidine 40 mg tablet (Pepcid) 40 mg PO BID #60 tab 01/18/21 03/24/21 Rx methocarbamol 500 mg tablet 500 mg PO TID #90 tab 03/24/21 03/24/21 Rx nitrofurantoin 100 mg PO Q12H 7 Days #14 cap 04/26/21 Rx monohydrate/macrocrystals 100 mg capsule (Macrobid) fluticasone 500 mcg-salmeterol 50 1 inh INHALATION DAILY #60 ea 05/26/21 Rx mcg/dose blistr powdr for inhalation (Advair Diskus) montelukast 10 mg tablet 10 mg PO PM #90 tab 05/26/21 Rx Allergies Allergy/AdvReac Type Severity Reaction Status Date / Time Penicillins Allergy Intermediate Rash Verified 03/24/21 13:12 mirtazapine [From Remeron] Allergy Unknown Unknown Verified 03/24/21 13:12 diphenhydramine AdvReac Intermediate "couldn't Verified 03/24/21 13:12 [From Benadryl] stop talking" Past Med/Surg History Medical History Allergic rhinitis Ambulatory dysfunction Asthma Breast cancer Chronic kidney disease, stage 3 Constipation Depression Gallstones Generalized osteoarthritis GERD (gastroesophageal reflux disease) Hiatal hernia Hyperlipidemia Osteopenia TIA involving basilar artery Vertebrobasilar circulation transient ischemic attack (12/09/13) Vertigo Volvulus of stomach Surgical History H/O colonoscopy History of mandibular surgery History of modified radical mastectomy History of tonsillectomy Hx of cataract surgery left eye 01/2012 S/P small bowel resection Family History Family/Other Cancer Denies family history of No family history of adverse response to anesthesia Colorectal cancer Social History Smoking Status: Never smoker Second Hand Exposure: No; Hx Alcohol Use: No Hx Substance Use: No Preferred Language: Swedish Communication Ability: Effective Visual Impairment: Limited Hearing Ability: Use of Hearing Aid 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 Feels Safe at Home: Yes Childhood Exposure to Second-Hand Smoke: Yes caffeine: Yes Dental Care, Regularly: Yes Physical Activity Frequency: Does not Exercise Seatbelt Use: never Sunscreen Use: Yes Assistive Devices: Glasses Review of Systems A total of 10 systems reviewed and were otherwise negative Physical Exam Vital Signs Vital Signs - 24 hr 05/31/21 11:49 05/31/21 12:44 05/31/21 12:49 Temperature 36.6 C Temperature Source Oral Pulse Rate 127 H 135 H 122 H Pulse Rhythm Irregular Pulse Strength Normal Respiratory Rate 24 Respiratory Effort / Characteristics Non-Labored Respiratory Depth Normal Respiratory Pattern Regular Blood Pressure 99/66 L 118/101 H 127/93 Blood Pressure Mean 77 Blood Pressure Position Sitting Pulse Oximetry 98 Oxygen Delivery Method Room Air Sepsis Recent Fever Within 48 Hours No Sepsis New/Unexplained Change in Mental Status No Sepsis Action Taken by Nursing No Action Required CONSTITUTIONAL/VITAL SIGNS: Reviewed / noted above. GENERAL: Non-toxic in appearance. INTEGUMENTARY: Warm, dry, and [place]. HEAD: Normocephalic. EYES: without scleral icterus or trauma. ENT/OROPHARYNX: clear and moist. LYMPHADENOPATHY/NECK: Is supple without lymphadenopathy or meningismus. RESPIRATORY: Clear to auscultation bilaterally. No increased work of breathing. CARDIOVASCULAR: Rapid and irregular rhythm GI/ABDOMEN: Soft and nontender. No organomegaly or pulsatile mass. EXTREMITIES: Warm and well perfused. BACK: No CVA tenderness. NEUROLOGICAL: Intact without focal deficits. PSYCHIATRIC: normal affect. MUSCULOSKELETAL: Normally developed with good muscle tone. TRIAGE NURSING DOCUMENTATION REVIEWED. Course Administered Medications Metoprolol Tartrate (Metoprolol Tartrate 1 Mg/Ml Vial) 5 mg IV Q5M PRN PRN Reason: Tachycardia Stop: 06/30/21 12:33 Last Admin: 05/31/21 12:49 Dose: 5 mg Documented by: [id number] Admin: 05/31/21 12:44 Dose: 5 mg Documented by: [id number] Admin: 05/31/21 12:39 Dose: 5 mg Documented by: [id number] Discontinued Medications Sodium Chloride (Nss) 500 mls @ 999 mls/hr IV .Q31M STA Stop: 05/31/21 12:54 Last Admin: 05/31/21 12:35 Dose: Not Given Documented by: [id number] Critical Care Time Critical Care Time: Yes Total Critical Care Time: 30 I have personally spent 30 minutes of critical care time in the direct management of this patient. This includes bedside care, interpretation of diagnostic studies, and testing, discussion with consultants, patient, and family members, and other required patient management activities. This 30 minutes is in excess of all separately billable procedures. Medical Decision Making Differential Diagnosis The differential that was considered includes acute myocardial infarction, acute coronary syndrome, myocarditis, pericarditis, pericardial effusions /tamponade, esophageal perforation, thoracic aortic dissection, pulmonary embolism, pn eumonia, pneumothorax, pancreatitis, shingles, acute cholecystitis, perforated abdominal viscus. Medical Records Attestation: I reviewed the patient's medical records. Home Medications Current Medication List: was personally reviewed by me Laboratory Data Attestation: I reviewed the patient's lab results. Result diagrams: 05/31/21 12:10 05/31/21 12:10 Lab Results 05/31/21 05/31/21 05/31/21 Range/Units 12:10 12:10 12:10 WBC 5.76 (4.8-10.8) K/uL RBC 5.03 (4.2-5.4) M/uL Hgb 14.6 (12.0-16.0) g/dL Hct 44.1 (37-47) % MCV 87.7 (80-100) fL MCH 29.0 (25-34) pg MCHC 33.1 (32-36) g/dL RDW Std Deviation 41.9 (36.4-46.3) fL RDW Coeff of [place] 13.2 (11.5-14.5) % Plt Count 257 (130-400) K/uL MPV 9.5 (7.4-10.4) fL Immature Gran % (Auto) 0.3 % Neut % (Auto) 62.5 % Lymph % (Auto) 26.2 % [place] % (Auto) 7.6 % Eos % (Auto) 3.1 % Baso % (Auto) 0.3 % Neut # (Auto) 3.59 (1.4-6.5) K/uL Lymph # (Auto) 1.51 (1.2-3.4) K/uL [place] # (Auto) 0.44 (0.11-0.59) K/uL Eos # (Auto) 0.18 (0-0.5) K/uL Baso # (Auto) 0.02 (0-0.2) K/uL Immature Gran # (Auto) 0.02 (0.00-0.02) K/uL PT 10.0 (9.0-12.0) Seconds INR 1.0 (0.9-1.1) APTT 26.9 (21.0-31.0) Seconds PTT Ratio 1.0 Sodium 142 (136-145) mmol/L Potassium 3.7 (3.5-5.1) mmol/L Chloride 111 H (98-107) mmol/L Carbon Dioxide 23 (21-32) mmol/L Anion Gap 8.0 (3-11) BUN 20 H (7-18) mg/dl Creatinine 1.19 (0.6-1.2) mg/dl Est Cr Clr Drug Dosing Not Reportable Est GFR ( Amer) 49.6 ml/min Est GFR (Non-Af Amer) 42.8 ml/min BUN/Creatinine Ratio 17.1 (10-20) Glucose 105 H (70-99) mg/dl Calcium 9.2 (8.5-10.1) mg/dl Magnesium 2.5 H (1.8-2.4) mg/dl Total Bilirubin 0.5 (0.2-1) mg/dl AST 17 (15-37) U/L ALT 18 (12-78) U/L Alkaline Phosphatase 74 (45-117) U/L Troponin I 0.250 H* (0-0.045) ng/ml Total Protein 7.9 (6.4-8.2) gm/dl Albumin 3.5 (3.4-5.0) gm/dl Globulin 4.4 H (2.5-4.0) gm/dl Albumin/Globulin Ratio 0.8 L (0.9-2) TSH 2.070 (0.300-4.500) uIu/ml Imaging Data My Impression: Chest x-ray: Per my interpretation there is no pneumothorax or pneumonia. ECG Data Attestation: I personally reviewed and interpreted this ECG as follows: Additional Comments: Twelve-lead EKG: Per my interpretation there is atrial flutter with variable conduction at a rate of 142. Some nonspecific ST changes. No C elevation. No PVCs. Normal QTC. MDM Narrative Patient presents to the ED with a chief complaint of 5 days of worsening shortness of breath that is worse with exertion. She thought it was her asthma acting up. The patient went to urgent care and was found to be in a flutter with RVR. Heart rate was in the 140s upon arrival. Blood pressure stable. She was given normal saline IV bolus by EMS and in the ED. A total of 1 L was pro vided. 15 mg of IV Lopressor did not slow down the rate much. She was given a dose of IV Cardizem 20 mg. Her troponin is elevated at 0.25. TSH was normal. CBC and chemistry panel was unremarkable. EKG shows a flutter with RVR. Impression & Plan Atrial flutter with rapid ventricular response, Elevated troponin Discharge Plan Visit Data Chief Complaint: Cardiac Assessment ED Provider: Ricardo Damon Discharge Problem: Atrial flutter with rapid ventricular response, Elevated troponin Patient Disposition: Being Evaluated by Hospitalist Forms Stand Alone Forms: [facility] Prescriptions Prescriptions: No Action albuterol sulfate 90 mcg/actuation HFA aerosol inhaler 1 puffs INH Q6H PRN (Reason: shortness of breath or wheezing) Qty: 18 RF: 3 venlafaxine 75 mg capsule,extended release 24hr 75 mg PO DAILY Qty: 90 RF: 3 pantoprazole 40 mg tablet,delayed release (DR/EC) 40 mg PO DAILY Qty: 60 RF: 5 fexofenadine 180 mg tablet 180 mg PO BID Qty: 180 RF: 3 famotidine [Pepcid] 40 mg tablet 40 mg PO BID Qty: 60 RF: 5 nitrofurantoin monohyd/m-cryst [Macrobid] 100 mg capsule 100 mg PO Q12H 7 Days Qty: 14 RF: 0 fluticasone propion-salmeterol [Advair Diskus] 500-50 mcg/dose blister with device 1 inh INHALATION DAILY Qty: 60 RF: 3 montelukast 10 mg tablet 10 mg PO PM Qty: 90 RF: 3 epinephrine 0.3 mg/0.3 mL auto-injector 0.3 ml IM UD PRN (Reason: anaphylaxis) Qty: 1 RF: 0 acetaminophen 650 mg tablet extended release 1,300 mg PO BID PRN (Reason: fever or pain) Qty: 60 RF: 0 docusate sodium 100 mg capsule 100 mg PO BID PRNRF: 0 lubiprostone 8 mcg capsule 8 mcg PO BID PRNRF: 0 methocarbamol 500 mg tablet 500 mg PO TID Qty: 90 RF: 0 cholecalciferol (vitamin D3) [Vitamin D3] 5,000 unit Tablet 5,000 unit PO DAILY RF: 0 Referrals Referrals: Ranjan Rodriguez, [Primary Care Provider] -
--- NOTE | 2021-05-31 13:31 | XRay Report ---
XR chest 1V portable CLINICAL HISTORY: Dysrhythmia COMPARISON STUDY: Chest CT June 10, 2019. Chest radiograph May 30, 2018. FINDINGS: Relative lucency of the right lung is due to right mastectomy. Lung volumes are normal. Antoni gs are clear. There is no pneumothorax or pleural effusion. Cardiac size is stable. Mediastinal conto urs are normal. There is no evidence for pulmonary edema. IMPRESSION: No acute cardiopulmonary findings. ACT 112: Negative or not required by law. Electronically signed by: Josué Contreras M.D. 05/31/2021 1:29 PM
[2021-05-31] MEDS ORDERED: Heparin IV Adult Wt-Based Standard WITH Bolus Protocol IV STA (13:48)
[2021-05-31] MEDS ORDERED: HEPARIN SOD (PORCINE) 1000 UNIT/ML IV ONE (14:03)
[2021-05-31] MEDS ORDERED: ACETAMINOPHEN 325 MG TAB PO PRN (14:15)
[2021-05-31] MEDS ORDERED: HEPARIN SODIUM/DEXTROSE 25,000 UNITS/500 ML BAG IV SCH (14:15)
--- NOTE | 2021-05-31 14:16 | History & Physical Report ---
Date of Service May 31, 2021 Assessment & Plan (1) Atrial flutter with rapid ventricular response: Plan: Aflutter predominantly with variable conduction some afib on telemetry review - CHADS VASC2- 3; HAS-BLED score of 3 - Greater than 72 hours of symptom onset - Eliquis 5mg PO BID first dose now - Diltiazem drip 5mg an hour goal HR <110 - Continue with gentle IV volume as also assisting with HR lowering- appears euvolemic on exam - MAG 2.5, K 3.7- 30 MEQ Kdur x1 - ECHO evaluate valves and wall motion As in atrial flutter currently with some difficulty obtaining rate control on admission - Actually spontaneous conversion to NSR in the 70s ~1530 with dilti azem 5mg/hr. - Diltiazem 30mg PO orally x1 now and then TID - with transition to CR in morning if hemodynamics stable and EF normal - Transition to oral agent if rate control achieved - Cardiology consulted - If rates become unable to control again consider IV digoxin or re-starting diltiazem drip (2) Elevated troponin: Plan: Non-specific T wave changes- mary ann consistent with stress response of increased HR over the past 4 days - follow on telemetry - trend troponin I and ECG - Decrease HR (3) Asthma, mild intermittent: Plan: Usually well controlled with symptoms. - continue TAM and Montelukast and fexofenadine (4) GERD (gastroesophageal reflux disease): Plan: With large hiatal hernia requiring surgical repair in 2019 - remains on dual acid suppression as outpatient - continue famotidine and pantoprazole (5) Chronic kidney disease, stage 3: Plan: CKD III a- stable - follow with eliquis dosing (6) Depression: Plan: Continue Venalfexine (7) Back pain: Plan: Chronic with OA - Continue Tylenol PRN - Continue methocarbamol TID (8) Allergic rhinitis: Plan: As above History of Present Illness Primary Care Provider: Ranjan Rodriguez, DO 80 YOF with past medical history of: Asthma, seasonal allergies, GERD, volvulus of stomach with Hiatal hernia requiring surgical correction (2019), bilateral hearing aids, OA with lower back pain, Depression, constipation, Breast Cancer >~25 years ago, and TIA(2014). Patient comes to the emergency room today for complaints of 4 day history of dyspnea. She would get short of breath upon walking to the bathroom or around the house, to where she would have to take a rest. She ordinally thought it was asthma so didn't seek medical attention at that time. She came in today because the dyspnea was associated with short lived chest pressure yesterday evening that she says lasted about 10-15 minutes and was not associated with any other symptoms. She did not have any palpitations or feel her heart racing. She has not had this before and denies any history of smoking, lung disease, or ETOH use. She was given Lopressor 5mg IV x3 in the EMD without effect, and 20mg Of Diltiazem without effect. She did get mildly hypotensive with the diltiazem to 90/60s. Patient will be admitted for rate control and anticoagulation, trend her Troponin I and ECG. Currently she is refractory to BB and CA channel gary. Cardizem drip initiated as HR is now 110-118. Patient did recently finish a treatment of Macrobid for UTI last week, but otherwise reports her normal health. Will send UA as well. We did have risk and benefit discussion regarding anticoagulation and stroke risk vs. bleeding. We reviewed pros and cons to Heparin drip, Lovenox injection, VKA, and DOACs. Patient wished to have medication that was easy to take and not require further blood draws or injections. She was given Eliquis PO in the EMD and will continue this. Patient has received her COVID vaccine with booster and flu vaccine, Patient COVID test on admission is: NEGATIVE Allergies Allergy/AdvReac Type Severity Reaction Status Date / Time Penicillins Allergy Intermediate Rash Verified 05/31/21 13:54 mirtazapine [From Remeron] Allergy Unknown Unknown Verified 05/31/21 13:54 diphenhydramine AdvReac Intermediate "couldn't Verified 05/31/21 13:54 [From Benadryl] stop talking" Home Medications Medication Instructions Recorded Confirmed Type acetaminophen 650 mg 1,300 mg PO BID PRN #60 tab 03/11/19 05/31/21 History tablet,extended release epinephrine 0.3 mg/0.3 mL 0.3 ml IM UD PRN #1 ea 03/11/19 05/31/21 History injection, auto-injector albuterol sulfate 90 mcg/actuation 1 puffs INH Q6H PRN #18 gm 03/15/19 05/31/21 Rx aerosol inhaler cholecalciferol (vitamin D3) 125 5,000 unit PO QAM 06/10/19 05/31/21 History mcg (5,000 unit) tablet (Vitamin D3) docusate sodium 100 mg capsule 100 mg PO BID PRN cap 09/24/20 05/31/21 History lubiprostone 8 mcg capsule 8 mcg PO BID PRN cap 09/24/20 05/31/21 History famotidine 40 mg tablet (Pepcid) 40 mg PO BID #60 tab 01/18/21 05/31/21 Rx methocarbamol 500 mg tablet 500 mg PO TID #90 tab 03/24/21 05/31/21 Rx fluticasone 500 mcg-salmeterol 50 1 inh INHALATION DAILY #60 ea 05/26/21 05/31/21 Rx mcg/dose blistr powdr for inhalation (Advair Diskus) montelukast 10 mg tablet 10 mg PO PM #90 tab 05/26/21 05/31/21 Rx fexofenadine 180 mg tablet 180 mg PO BID PRN 05/31/21 05/31/21 History pantoprazole 40 mg tablet,delayed 40 mg PO QAM PRN 05/31/21 05/31/21 History release venlafaxine 75 mg capsule,extended 75 mg PO QAM 05/31/21 05/31/21 History release 24 hr Past Med/Surg History Medical History Allergic rhinitis Ambulatory dysfunction Asthma Breast cancer Chronic kidney disease, stage 3 Constipation Depression Gallstones Generalized osteoarthritis GERD (gastroesophageal reflux disease) Hiatal hernia Hyperlipidemia Osteopenia TIA involving basilar artery Vertebrobasilar circulation transient ischemic attack (12/09/13) Vertigo Volvulus of stomach Surgical History H/O colonoscopy History of mandibular surgery History of modified radical mastectomy History of tonsillectomy Hx of cataract surgery left eye 01/2012 S/P small bowel resection Family History Family/Other Cancer Denies family history of No family history of adverse response to anesthesia Colorectal cancer Social History Smoking Status: Never smoker Second Hand Exposure: No; Hx Alcohol Use: No Hx Substance Use: No Preferred Language: Sami Communication Ability: Effective Visual Impairment: Limited Hearing Ability: Use of Hearing Aid Vocational Director Required: No Beliefs That Will Affect Care: None marital status: / Current Living Situation: Alone Current Living Situation Comment: Lives with 2 cats and 1 dog. 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 Feels Safe at Home: Yes Safety Concerns: Feels Safe At This Time Childhood Exposure to Second-Hand Smoke: Yes caffeine: Yes Dental Care, Regularly: Yes Physical Activity Frequency: Does not Exercise Seatbelt Use: never Sunscreen Use: Yes Assistive Devices: Denture - Upper, Denture - Lower, Glasses, Hearing Aid - Bilateral and Hearing Aid - Left Review of Systems Review of Systems: REVIEW OF SYSTEMS: Constitutional: No fever, sweats or chills Eyes: No diplopia, no worsening or blurred vision ENT: (+) bilateral hearing aids, no trouble swallowing Respiratory: (+) dyspnea on exertion, No cough, sputum, no orthopnea, no dyspnea at rest Cardiovascular: (+) chest pressure last night, NO chest pain currently, tightness or palpitations Abdomen: No pain, nausea, vomiting, diarrhea or constipation Musculoskeletal: No joint pain, calf pain, swelling Neurologic: No weakness, numbness/tingling, or balance problems Psychiatric: (+) depression, Skin: No rash or itch Physical Exam Physical Exam: PHYSICAL EXAM: General: awake, alert, no apparent distress Head: Normocephalic, atraumatic ENT: PERRLA, EOMI, no pharyngeal exudate, mucous membranes moist Neuro: AAO x 3, speech clear and appropriate, strength intact bilaterally 5/5, sensation intact and equal all extremities and dermatomes, no pronator drift Chest: equal rise and fall of the chest, no accessory muscle use, no heaves or thrills, Clear to auscultation, on room air, Cardiac: Irregular rate and rhythm, telemetry reviewed- Aflutter/Afib, skin wa rm dry, cap refill <3 seconds, peripheral pulses +2 no JVD, no murmur, no edema GI: NABS x 4 quadrants, soft, nontender to palpation, no rebound, guarding or tenderness : Spontaneously voiding, no pain, no CVA tenderness, Extremities: Normal inspection, no peripheral edema or erythema, calfs nontender to palpation Psych: Normal mood and affect Skin: no rash or erythema Results & Data Results & Data ([facility]) Vital Signs (Past 12 Hours) Vital Signs Temp Pulse Pulse Resp BP BP Pulse Ox 05/31/21 14:08 122 H 20 126/83 95 05/31/21 12:49 122 H 127/93 05/31/21 12:44 135 H 118/101 H 05/31/21 11:49 36.6 C 127 H 24 99/66 L 98 Laboratory Results Abnormal lab results 05/31/21 Range/Units 12:10 Chloride 111 H (98-107) mmol/L BUN 20 H (7-18) mg/dl Glucose 105 H (70-99) mg/dl Magnesium 2.5 H (1.8-2.4) mg/dl Troponin I 0.250 H* (0-0.045) ng/ml Globulin 4.4 H (2.5-4.0) gm/dl Albumin/Globulin Ratio 0.8 L (0.9-2) Diagnostic Findings Chest X-Ray 05/31/21 12:25 XR chest 1V portable CLINICAL HISTORY: Dysrhythmia COMPARISON STUDY: Chest CT June 10, 2019. Chest radiograph May 30, 2018. FINDINGS: Relative lucency of the right lung is due to right mastectomy. Lung volumes are normal. Lungs are clear. There is no pneumothorax or pleural effusion. Cardiac size is stable. Mediastinal contours are normal. There is no evidence for pulmonary edema. IMPRESSION: No acute cardiopulmonary findings. ACT 112: Negative or not required by law. Electronically signed by: Josué Contreras M.D. 05/31/2021 1:29 PM Medications Administered Home Medications acetaminophen 650 mg tablet,extended release 1,300 mg PO BID PRN #60 tab 03/11/19 [History Confirmed 05/31/21] epinephrine 0.3 mg/0.3 mL injection, auto-injector 0.3 ml IM UD PRN #1 ea 03/11/19 [History Confirmed 05/31/21] albuterol sulfate 90 mcg/actuation aerosol inhaler 1 puffs INH Q6H PRN #18 gm 08/16/19 [Rx Confirmed 05/31/21] cholecalciferol (vitamin D3) 125 mcg (5,000 unit) tablet (Vitamin D3) 5,000 unit PO QAM 06/10/19 [History Confirmed 05/31/21] docusate sodium 100 mg capsule 100 mg PO BID PRN cap 09/24/20 [History Confirmed 05/31/21] lubiprostone 8 mcg capsule 8 mcg PO BID PRN cap 09/24/20 [History Confirmed 05/31/21] famotidine 40 mg tablet (Pepcid) 40 mg PO BID #60 tab 01/18/21 [Rx Confirmed 05/31/21] methocarbamol 500 mg tablet 500 mg PO TID #90 tab 03/24/21 [Rx Confirmed 05/31/21] fluticasone 500 mcg-salmeterol 50 mcg/dose blistr powdr for inhalation (Advair Diskus) 1 inh INHALATION DAILY #60 ea 05/26/21 [Rx Confirmed 05/31/21] montelukast 10 mg tablet 10 mg PO PM #90 tab 05/26/21 [Rx Confirmed 05/31/21] fexofenadine 180 mg tablet 180 mg PO BID PRN 05/31/21 [History Confirmed 05/31/21] pantoprazole 40 mg tablet,delayed release 40 mg PO QAM PRN 05/31/21 [History Confirmed 05/31/21] venlafaxine 75 mg capsule,extended release 24 hr 75 mg PO QAM 05/31/21 [History Confirmed 05/31/21] Active Medications Acetaminophen (Acetaminophen 325 Mg Tab) 650 mg PO Q6H PRN PRN Reason: pain or fever Stop: 06/30/21 14:14 Apixaban (Apixaban 2.5 Mg Tab) 5 mg PO ONE ONE Stop: 05/31/21 14:00 Heparin Sodium/Dextrose (Heparin Sodium/Dextrose) 25,000 units in 500 mls @ 0.02 mls/hr IV .Q24H JUAN PABLO; Protocol Stop: 06/30/21 14:14 Diltiazem HCl 125 mg/ Dextrose 125 mls @ 5 mls/hr IV .Q24H JUAN PABLO; Protocol Stop: 06/30/21 14:44 Sodium Chloride (Nss 1000ml) 500 mls @ 999 mls/hr IV .Q31M ONE Stop: 05/31/21 15:17 Metoprolol Tartrate (Metoprolol Tartrate 1 Mg/Ml Vial) 5 mg IV Q5M PRN PRN Reason: Tachycardia Stop: 06/30/21 12:33 Last Admin: 05/31/21 12:49 Dose: 5 mg Documented by: Miscellaneous (Stat Iv Infusion Titration Per Protocol) 1 ea N/A NOW STA Stop: 05/31/21 14:37 Metoprolol Tartrate (Metoprolol Tartrate 1 Mg/Ml Vial) 5 mg IV Q5M PRN PRN Reason: Tachycardia Stop: 06/30/21 12:33 Last Admin: 05/31/21 12:49 Dose: 5 mg Documented by: [id number] Admin: 05/31/21 12:44 Dose: 5 mg Documented by: [id number] Admin: 05/31/21 12:39 Dose: 5 mg Documented by: [id number] Discontinued Medications Sodium Chloride (Nss) 500 mls @ 999 mls/hr IV .Q31M STA Stop: 05/31/21 12:54 Last Admin: 05/31/21 12:35 Dose: Not Given Documented by: [id number] ECG Additional Comments: Atrial flutter with variable A-V block Nonspecific ST and T wave abnormality Abnormal ECG When compared with ECG of 10-JUN-2019 03:53, Atrial flutter has replaced Sinus rhythm Vent. rate has increased BY 61 BPM Nonspecific T wave abnormality now evident in Inferior leads Nonspecific T wave abnormality, worse in Anterior leads 1554: Normal sinus rhythm Nonspecific ST abnormality Abnormal ECG When compared with ECG of 31-MAY-2021 12:05, Sinus rhythm has replaced Atrial flutter Vent. rate has decreased BY 73 BPM Nonspecific T wave abnormality no longer evident in Anterior leads Code Status & VTE Plan Code Status CODE: FULL VTE: SCDs, Eliquis Supervising Physician Co-Signing Physician Notes Attending Attestation and Admission Note - Pt seen/examined, chart reviewed, care plan d/w DANELLE Amaral. I agree w/ the bullock components of his documentation. Pleasant 80yo female with h/o asthma and prior gastric volvulus/hiatal hernia repair who presents with several days of dyspnea. Upon ER presentation noted to be in rapid a. flutter. 15mg in total of metoprolol did not provide any effective rate control. Cardizem 20mg IV x 1 did not provide rate control; simply lowered her BP. Denied any chest pain during my assessment. Denies any palpitations. PMH, PSH, allergies, meds, sochx, famhx - reviewed vitals - tachy, BP low, RR/o2 sats wnl gen - thin, NAD mouth - MMM neck - no JVD heart - tachy, irregular, s1,s2, no murmur lungs - CTA b/l abd - soft NT ND BS+; multiple abd wall scars ext - no edema, pulses 2+ b/l labs reviewed; noted mildly elevated troponin 0.25; Cr 1.1 cxr - wnl EKG - my reading - rapid a flutter with variable AV block, minimal ST depression inferior leads; minimal ST depression anteroseptal leads A/P: New-onset rapid a.flutter - poor response to BB and CCB in ER while awaiting admission. Fortunately while awaiting transfer to the floor she spontaneously converted back to NSR. CHADs-VASc is elevated and anticoagulation is recommended. If no cost issues I agree with eliquis 5mg BID. Echo. Cardiology consultation requested. Observe overnight on telemetry. Given the severity of her symptoms and [id number] rates while in a.flutter is EP study an option? Defer to cardiology. Elevated troponin - 2nd to myocardial demand ischemia in setting of rapid a.flutter. Trend. Peter Mayo MD PG Care Time/CCT Total # of Minutes Spent Total Time Spent with Patient: Total time spent is greater than 50% in coordination of care (as documented) at patient's floor/unit and/or counseling patient: Coding Level of Care Code 89109 Initial Inpt Care Lvl 3 Diagnoses Atrial flutter with rapid ventricular response I48.92 Elevated troponin R77.8 Asthma, mild intermittent J45.20 Chronic kidney disease, stage 3 N18.3 Depression F32.9 Back pain M54.9 Allergic rhinitis J30.9 GERD (gastroesophageal reflux disease) K21.9
[2021-05-31] MEDS ORDERED: STAT IV Infusion **Titration per Protocol STA (14:36)
--- NOTE | 2021-05-31 14:37 | Electrocardiogram Report ---
Test Reason : Blood Pressure : / mmHG Vent. Rate : 142 BPM Atrial Rate : 256 BPM P-R Int : 000 ms QRS Dur : 088 ms QT Int : 342 ms P-R-T Axes : 000 078 078 degrees QTc Int : 526 ms Atrial flutter with variable A-V block Nonspecific ST and T wave abnormality Abnormal ECG When compared with ECG of 10-JUN-2019 03:53, Atrial flutter has replaced Sinus rhythm Vent. rate has increased BY 61 BPM Nonspecific T wave abnormality now evident in Inferior leads Nonspecific T wave abnormality, worse in Anterior leads Confirmed by Lee Eisenberg ([id number]) on 05/31/2021 2:37:30 PM Referred By: Confirmed By:Ronaldo Eisenberg
[2021-05-31] MEDS ORDERED: dilTIAZem HCL 125 MG in DEXTROSE 5% 100 ML IV SCH (14:45)
[2021-05-31] MEDS ORDERED: SODIUM CHLORIDE 0.9% 1000ML 500 ML IV ONE (14:47)
[2021-05-31] MEDS ORDERED: dilTIAZem HCL 30 MG TAB PO ONE (15:59)
[2021-05-31] MEDS ORDERED: POTASSIUM CHLORIDE 10 MEQ TABCR PO ONE (16:00)
[2021-05-31] MEDS ORDERED: APIXABAN 2.5 MG TAB PO ONE (16:00)
[2021-05-31] MEDS ORDERED: ONDANSETRON INJ 2 MG/ML 2 ML VIAL IV PRN (19:32)
[2021-05-31] MEDS ORDERED: PANTOprazole 40 MG TAB PO PRN (19:32)
[2021-05-31] MEDS ORDERED: FEXOFENADINE HCL 180 MG TAB PO PRN (19:32)
[2021-05-31] MEDS ORDERED: METHOCARBAMOL 500 MG TABLET PO PRN (19:32)
[2021-05-31] MEDS ORDERED: ALBUTEROL HFA 8 GM INHALER INH PRN (19:32)
[2021-05-31] MEDS ORDERED: DOCUSATE SODIUM 100 MG CAP PO PRN (19:32)
[2021-05-31] MEDS ORDERED: LUBIPROSTONE 8 MCG CAP PO PRN (20:50)
[2021-05-31] MEDS ORDERED: MONTELUKAST SODIUM 10 MG TABLET PO SCH (21:00)
[2021-05-31] MEDS: APIXABAN 5 MG TABLET PO SCH (21:32)
[2021-05-31] MEDS: dilTIAZem HCL 30 MG TAB PO SCH (21:33)
[2021-05-31] MEDS: FAMOTIDINE 40 MG TABLET PO SCH (21:34)
[2021-06-01 06:10] LABS: Basophils # (auto) 0.03 K/uL (0-0.2); Basophils % (auto) 0.6 %; Eosinophils # (auto) 0.17 K/uL (0-0.5); Eosinophils % (auto) 3.6 %; Hematocrit (blood only) 36.9 % (37-47); Hemoglobin 12.1 g/dL (12.0-16.0); Immature Granulocytes # (auto) 0.01 K/uL (0.00-0.02); Immature Granulocytes % (auto) 0.2 %; Lymphocytes # (auto) 1.19 K/uL (1.2-3.4); Lymphocytes % (auto) 25.3 %; Mean Corpuscular Hemoglobin 28.8 pg (25-34); Mean Corpuscular Hgb Conc 32.8 g/dL (32-36); Mean Corpuscular Volume 87.9 fL (80-100); Mean Platelet Volume 9.2 fL (7.4-10.4); Monocytes # (auto) 0.43 K/uL (0.11-0.59); Monocytes % (auto) 9.1 %; Neutrophils # (auto) 2.88 K/uL (1.4-6.5); Neutrophils % (auto) 61.2 %; Platelet Count 237 K/uL (130-400); RDW Coefficient of Variation 13.1 % (11.5-14.5); RDW Standard Deviation 41.9 fL (36.4-46.3); White Blood Count 4.71 K/uL (4.8-10.8)
[2021-06-01 06:30] LABS: Calcium 8.9 mg/dl (8.5-10.1); Creatinine Clr Calc Pharmacy 36.6 ml/min; Est GFR (African American) 52.8 ml/min; Est GFR (Non-African American) 45.5 ml/min; Magnesium 2.3 mg/dl (1.8-2.4); Potassium 4.2 mmol/L (3.5-5.1)
[2021-06-01 06:44] LABS: Troponin I 0.18 ng/ml (0-0.045)
--- NOTE | 2021-06-01 08:58 | Electrocardiogram Report ---
Test Reason : Blood Pressure : / mmHG Vent. Rate : 069 BPM Atrial Rate : 069 BPM P-R Int : 140 ms QRS Dur : 076 ms QT Int : 402 ms P-R-T Axes : 074 069 057 degrees QTc Int : 430 ms Poor data quality, interpretation may be adversely affected Normal sinus rhythm Nonspecific ST abnormality Abnormal ECG When compared with ECG of 31-MAY-2021 12:05, Sinus rhythm has replaced Atrial flutter Vent. rate has decreased BY 73 BPM Nonspecific T wave abnormality no longer evident in Anterior leads Confirmed by Lee Eisenberg ([id number]) on 06/01/2021 8:57:40 AM Referred By: REFERRED SELF Confirmed By:Ronaldo Eisenberg
[2021-06-01] MEDS ORDERED: FLUTICASONE/VILANTEROL 200/25MCG 14 PUFFS/INHALER INH SCH (09:00)
[2021-06-01] MEDS ORDERED: VENLAFAXINE HCL XR 75 MG CAPXR PO SCH (09:00)
[2021-06-01] MEDS ORDERED: CHOLECALCIFEROL 1,000 UNITS 25 MCG TAB PO SCH (09:00)
--- NOTE | 2021-06-01 09:06 | Electrocardiogram Report ---
Test Reason : Blood Pressure : / mmHG Vent. Rate : 080 BPM Atrial Rate : 080 BPM P-R Int : 146 ms QRS Dur : 068 ms QT Int : 376 ms P-R-T Axes : 071 077 061 degrees QTc Int : 433 ms Normal sinus rhythm Low voltage QRS Borderline ECG When compared with ECG of 31-MAY-2021 15:54, (unconfirmed) No significant change was found Confirmed by Lee Eisenberg ([id number]) on 06/01/2021 9:05:52 AM Referred By: REFERRED SELF Confirmed By:Ronaldo Eisenberg
[2021-06-01] MEDS: FAMOTIDINE 40 MG TABLET PO SCH (09:18)
[2021-06-01] MEDS: dilTIAZem HCL 30 MG TAB PO SCH ×2 (09:18→14:06)
[2021-06-01] MEDS: APIXABAN 5 MG TABLET PO SCH (09:18)
--- NOTE | 2021-06-01 09:26 | XCELERA ---
[id number]
--- NOTE | 2021-06-01 11:52 | Cardiology Consultation ---
Date of Consultation June 01, 2021 Assessment & Plan (1) Atrial flutter with rapid ventricular response: (2) Elevated troponin: (3) Valvular heart disease: 1. Atrial flutter: Her presenting EKG is suggestive of an atrial flutter. This has the appearance of a typical right atrial flutter. She does have a history of asthma. I suspect her symptoms leading up to admission were simply related to her high ventricular rates. With resolution of the atrial flutter symptoms appear to have resolved. She is certainly at risk for recurrence. How often she will have atrial flutter is unknown. We did discuss options for treatment moving forward. This would include antiarrhythmic therapy versus catheter based therapy. Given the unknown time frame between now and recurrence, I did not advocate daily antiarrhythmic therapy. However, I would be in favor of catheter based therapy for definitive treatment of the arrhythmia. This potentially would obviate the need for ongoing anticoagulation. She is certainly in a demographic where atrial fibrillation is also likely. Many patients who undergo ablation for atrial flutter later will develop atrial fibrillation. However, rate control of atrial fibrillation is generally easier. At this point to have elected to simply monitor her for recurrences. She will consider her options moving forward and we can discuss this again in the outpatient setting. Given her risk factors for stroke, she is advised to continue systemic antic oagulation. She was started on Eliquis. She appears to be a good candidate for full dose Eliquis at 5 mg twice daily. I do not believe she benefits from or will require beta-blockade or calcium jhony nnel gary empirically. 2. Elevated troponin: Likely demand ischemia. Chest pain was not a prominent symptom of her presentation in the overall trajectory of her biomarkers is flat. Given her age likely has an element of fixed coronary disease which does not appear to be symptomatic in most circumstances. Provided she has few episodes of higher heart rates, do not believe she requires an additional evaluation at this point. Will continue Eliquis. 3. Valvular heart disease. She has an element of mitral regurgitation and stenosis. Both of these are mild. Do not think this precludes the use of Eliquis given the mild nature of her mitral stenosis. This can be followed over time. History of Present Illness Reason for Consultation: Atrial flutter Requesting Physician: Cristin Attending Physician: Maynor Tello MD History of Present Illness The patient is an 80-year-old woman without a known history of cardiac disease who has been experiencing symptoms of progressive exercise intolerance and dyspnea for 4-5 days. Patient states that she does suffer from asthma, and uses inhaler therapy on a p.r.n. basis. She states that generally speaking she is not limited by dyspnea. She maintains a reasonable level activity around her house carrying her dog in at ascending stairs. She did not report symptoms shortness of breath or exertional chest discomfort leading up to the last 4-5 days. However, recently she see has been very short of breath even with mild activity. She did have 1 episode chest discomfort which lasted 10-15 minutes a few nights ago. She did not describe this as a pain. She felt that this was very mild in nature. She apparently read up on signs of a heart attack and felt that she did not have additional symptoms and this discomfort resolved without intervention. However, given the persistent nature of her shortness of breath she presented to the emergency room for evaluation was found to have atrial flutter with an elevated ventricular response. Initial attempts at rate control with intravenous metoprolol and calcium channel blockers resulted in hypotension but no significant change in the arrhythmia. At some point, the patient's atrial flutter converted to sinus. At the time of the interview the patient claims to be feeling well. She had some mild gastrointestinal upset which appears to have resolved with lindsay kristal. She has been ambulatory in the emergency room with improved symptoms. She is not currently experiencing chest pain. She was not aware of palpitations recently. She did not have the ability to measure her heart rate at home. She had some mild dizziness at times. No presyncope or syncope. Allergies Allergy/AdvReac Type Severity Reaction Status Date / Time Penicillins Allergy Intermediate Rash Verified 05/31/21 13:54 mirtazapine [From Remeron] Allergy Unknown Unknown Verified 05/31/21 13:54 diphenhydramine AdvReac Intermediate "couldn't Verified 05/31/21 13:54 [From Benadryl] stop talking" Home Medications Medication Instructions Recorded Confirmed Type acetaminophen 650 mg 1,300 mg PO BID PRN #60 tab 03/11/19 05/31/21 History tablet,extended release epinephrine 0.3 mg/0.3 mL 0.3 ml IM UD PRN #1 ea 03/11/19 05/31/21 History injection, auto-injector albuterol sulfate 90 mcg/actuation 1 puffs INH Q6H PRN #18 gm 03/15/19 05/31/21 Rx aerosol inhaler cholecalciferol (vitamin D3) 125 5,000 unit PO QAM 06/10/19 05/31/21 History mcg (5,000 unit) tablet (Vitamin D3) docusate sodium 100 mg capsule 100 mg PO BID PRN cap 09/24/20 05/31/21 History lubiprostone 8 mcg capsule 8 mcg PO BID PRN cap 09/24/20 05/31/21 History famotidine 40 mg tablet (Pepcid) 40 mg PO BID #60 tab 01/18/21 05/31/21 Rx methocarbamol 500 mg tablet 500 mg PO TID #90 tab 03/24/21 05/31/21 Rx fluticasone 500 mcg-salmeterol 50 1 inh INHALATION DAILY #60 ea 05/26/21 05/31/21 Rx mcg/dose blistr powdr for inhalation (Advair Diskus) montelukast 10 mg tablet 10 mg PO PM #90 tab 05/26/21 05/31/21 Rx fexofenadine 180 mg tablet 180 mg PO BID PRN 05/31/21 05/31/21 History pantoprazole 40 mg tablet,delayed 40 mg PO QAM PRN 05/31/21 05/31/21 History release venlafaxine 75 mg capsule,extended 75 mg PO QAM 05/31/21 05/31/21 History release 24 hr Patient History Medical History Allergic rhinitis Ambulatory dysfunction Asthma Breast cancer Chronic kidney disease, stage 3 Constipation Depression Gallstones Generalized osteoarthritis GERD (gastroesophageal reflux disease) Hiatal hernia Hyperlipidemia Osteopenia TIA involving basilar artery Vertebrobasilar circulation transient ischemic attack (12/09/13) Vertigo Volvulus of stomach Surgical History H/O colonoscopy History of mandibular surgery History of modified radical mastectomy History of tonsillectomy Hx of cataract surgery left eye 01/2012 S/P small bowel resection Family History Family/Other Cancer Denies family history of No family history of adverse response to anesthesia Colorectal cancer Social History Smoking Status: Never smoker Second Hand Exposure: No; Hx Alcohol Use: No Hx Substance Use: No Preferred Language: Indonesian Communication Ability: Effective Visual Impairment: Limited Hearing Ability: Use of Hearing Aid Bottom Scrubber Required: No Beliefs That Will Affect Care: None marital status: / Current Living Situation: Alone Current Living Situation Comment: Lives with 2 cats and 1 dog. 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 Feels Safe at Home: Yes Safety Concerns: Feels Safe At This Time Childhood Exposure to Second-Hand Smoke: Yes caffeine: Yes Dental Care, Regularly: Yes Physical Activity Frequency: Does not Exercise Seatbelt Use: never Sunscreen Use: Yes Assistive Devices: Denture - Upper, Denture - Lower, Glasses, Hearing Aid - Bilateral and Hearing Aid - Left Review of Systems 2 Review of Systems: Per HPI. No recent fevers or chills. No coughing. No lower extremity edema or pain in the legs. Physical Exam Physical Exam: She is alert and oriented x3. Mood affect appear normal. She answered all questions appropriately. HEENT: Sclerae are anicteric. Pupils are equal and reactive to light and accommodation. Extraocular movements were intact. Neuro: Cranial nerves intact Neck: Examination of the submandibular region did not reveal any significant lymphadenopathy. Carotids are palpable bilaterally and free of bruits on auscultation. There was no evidence of jugular venous distention. The thyroid was not enlarged. Lungs: Lungs are clear to auscultation bilaterally. There are no rales wheezes or rhonchi. She has normal respiratory effort without use of accessory muscles. There is normal pulmonary excursion. Cardiac: The rhythm was regular. S1 and S2 were normal. Crescendo systolic murmur. The PMI was not markedly displaced on palpation. Abdomen: The abdomen was soft and nontender. Extremities: Patient has bilateral radial pulses that are equal in intensity. There is no evidence cyanosis or clubbing. There was no evidence of significant peripheral edema bilaterally. Skin: There are no rashes noted on examination today. Results & Data ([facility]) Vital Signs (Past 12 Hours) Vital Signs Temp Pulse Resp BP Pulse Ox 11/02/21 08:00 37 C 93 H 18 125/86 98 06/01/21 04:37 36.8 C 77 17 141/76 H 97 Laboratory Results Abnormal Lab Results 05/31/21 05/31/21 05/31/21 12:10 12:10 12:10 WBC 5.76 RBC 5.03 Hgb 14.6 Hct 44.1 MCV 87.7 MCH 29.0 MCHC 33.1 RDW Std Deviation 41.9 RDW Coeff of Chayo 13.2 Plt Count 257 MPV 9.5 Immature Gran % (Auto) 0.3 Neut % (Auto) 62.5 Lymph % (Auto) 26.2 Frio % (Auto) 7.6 Eos % (Auto) 3.1 Baso % (Auto) 0.3 Neut # (Auto) 3.59 Lymph # (Auto) 1.51 Frio # (Auto) 0.44 Eos # (Auto) 0.18 Baso # (Auto) 0.02 Immature Gran # (Auto) 0.02 PT 10.0 INR 1.0 APTT 26.9 PTT Ratio 1.0 Sodium 142 Potassium 3.7 Chloride 111 H Carbon Dioxide 23 Anion Gap 8.0 BUN 20 H Creatinine 1.19 Est Cr Clr Drug Dosing Not Reportable Est GFR ( Amer) 49.6 Est GFR (Non-Af Amer) 42.8 BUN/Creatinine Ratio 17.1 Glucose 105 H Calcium 9.2 Magnesium 2.5 H Total Bilirubin 0.5 AST 17 ALT 18 Alkaline Phosphatase 74 Troponin I 0.250 H* Total Protein 7.9 Albumin 3.5 Globulin 4.4 H Albumin/Globulin Ratio 0.8 L TSH 2.070 COVID-19 Eval Order SARS-CoV-2 (PCR) 05/31/21 05/31/21 05/31/21 14:25 14:25 21:37 WBC RBC Hgb Hct MCV MCH MCHC RDW Std Deviation RDW Coeff of Chayo Plt Count MPV Immature Gran % (Auto) Neut % (Auto) Lymph % (Auto) Frio % (Auto) Eos % (Auto) Baso % (Auto) Neut # (Auto) Lymph # (Auto) Frio # (Auto) Eos # (Auto) Baso # (Auto) Immature Gran # (Auto) PT INR APTT PTT Ratio Sodium Potassium Chloride Carbon Dioxide Anion Gap BUN Creatinine Est Cr Clr Drug Dosing Est GFR ( Amer) Est GFR (Non-Af Amer) BUN/Creatinine Ratio Glucose Calcium Magnesium Total Bilirubin AST ALT Alkaline Phosphatase Troponin I 0.229 H* Total Protein Albumin Globulin Albumin/Globulin Ratio TSH COVID-19 Eval Order Covid19 at [facility] SARS-CoV-2 (PCR) NEGATIVE 06/01/21 06/01/21 06/01/21 00:21 05:51 05:51 WBC 4.71 L RBC 4.20 Hgb 12.1 Hct 36.9 L MCV 87.9 MCH 28.8 MCHC 32.8 RDW Std Deviation 41.9 RDW Coeff of Chayo 13.1 Plt Count 237 MPV 9.2 Immature Gran % (Auto) 0.2 Neut % (Auto) 61.2 Lymph % (Auto) 25.3 Frio % (Auto) 9.1 Eos % (Auto) 3.6 Baso % (Auto) 0.6 Neut # (Auto) 2.88 Lymph # (Auto) 1.19 L Frio # (Auto) 0.43 Eos # (Auto) 0.17 Baso # (Auto) 0.03 Immature Gran # (Auto) 0.01 PT INR APTT PTT Ratio Sodium 144 Potassium 4.2 Chloride 114 H Carbon Dioxide 25 Anion Gap 5.0 BUN 16 Creatinine 1.13 Est Cr Clr Drug Dosing 36.6 Est GFR ( Amer) 52.8 Est GFR (Non-Af Amer) 45.5 BUN/Creatinine Ratio 14.0 Glucose 131 H Calcium 8.9 Magnesium 2.3 Total Bilirubin AST ALT Alkaline Phosphatase Troponin I 0.213 H* 0.180 H* Total Protein Albumin Globulin Albumin/Globulin Ratio TSH COVID-19 Eval Order SARS-CoV-2 (PCR) Diagnostic Findings Chest x-ray obtained at the time of admission did not reveal any acute cardiopulmonary findings. Echocardiogram obtained today revealed preserved LV systolic function and wall motion. There was aortic valve sclerosis without stenosis. Mild mitral regurgitation and mild mitral stenosis. PG Care Time/CCT Total # of Minutes Spent Total Time Spent with Patient: Total time spent is greater than 50% in coordination of care (as documented) at patient's floor/unit and/or counseling patient: Coding Level of Care Code INT OBSERVATION CARE 70M LVL 3 Diagnoses Atrial flutter with rapid ventricular response I48.92 Elevated troponin R77.8 Valvular heart disease I38
[2021-06-01] MEDS ORDERED: OPTIRAY 320 125ml IV ONE (14:56)
--- NOTE | 2021-06-01 15:12 | CT Scan Report ---
CT ANGIOGRAM OF THE CHEST CLINICAL HISTORY: Dyspnea. COMPARISON STUDY: Chest x-ray dated 05/31/2021. Chest CT dated 06/10/2019. TECHNIQUE: Following the IV administration of 99 cc of Optiray 320, CT angiogram of the chest was per formed from the upper abdomen to the thoracic inlet utilizing the pulmonary embolus protocol. Images are reviewed in the axial, sagittal, and coronal planes. 3-D MIPS images are created and assessed. IV contrast was administered without complication. A dose lowering technique was utilized adhering to the principles of ALARA. CT DOSE: 236.06 mGy.cm FINDINGS: Thyroid: Imaged portions of the thyroid gland are normal in size and attenuation. Thoracic aorta: The thoracic aorta is normal in caliber and demonstrates standard 3-vessel arch anato my. No dissection is seen. Pulmonary vasculature: The pulmonary trunk is normal in caliber. There are no filling defects identif ied in main, lobar, or segmental pulmonary branches to suggest pulmonary embolus. Heart: The heart is normal in size and without pericardial effusion. The mitral annulus is densely ca lcified. Lungs and pleural spaces: There is no airspace consolidation typical for pneumonia or pleural effusio n. A fat-containing Bochdalek hernia is noted at the left lung base. There is bibasilar scarring/atel ectasis. Scattered calcified granulomas are observed. Mediastinum: There is no mediastinal lymphadenopathy. Berta: Clear. Axillae: There is no axillary lymphadenopathy. Upper abdomen: There is a small hiatal hernia. Mild wall thickening is noted in the distal esophagus. , Which contains intraluminal debris. A 2.1 cm renal cyst is noted in the left upper pole. Skeletal structures: The skeletal structures are osteopenic. Degenerative change and mild kyphoscolio sis are noted in the thoracic spine. No lytic or blastic bony lesions are seen. Arthritic change is s een in the shoulders. Soft tissues: The right breast is surgically absent. IMPRESSION: 1. There is no evidence of pulmonary embolus in the main, lobar, or segmental pulmonary arteries. 2. There is no airspace consolidation or pleural effusion. 3. There is mild wall thickening of the distal esophagus with intraluminal debris. Correlate clinical ly for evidence of esophagitis. 4. Additional findings as above. ACT 112: Negative or not required by law. Electronically signed by: Reji Davis M.D. 06/01/2021 3:11 PM
--- NOTE | 2021-06-01 16:29 | Discharge Summary ---
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 Patient presented to ED for complaints of 4 day history of dyspnea. She would get short of breath upon walking to the bathroom or around the house, to where she would have to take a rest. She ordinally thought it was asthma so didn't seek medical attention at that time. She came in today because the dyspnea was associated with short lived chest pressure yesterday evening that she says lasted about 10-15 minutes and was not associated with any other symptoms. She did not have any palpitations or feel her heart racing. She has not had this before and denies any history of smoking, lung disease, or ETOH use. She was given Lopressor 5mg IV x3 in the EMD without effect, and 20mg Of Diltiazem without effect. She did get mildly hypotensive with the diltiazem to 90/60s. Patient admitted for rate control and anticoagulation, trend her Troponin I and ECG. Admission Exam Per Admitting Provider General: awake, alert, no apparent distress Head: Normocephalic, atraumatic ENT: PERRLA, EOMI, no pharyngeal exudate, mucous membranes moist Neuro: AAO x 3, speech clear and appropriate, strength intact bilaterally 5/5, sensation intact and equal all extremities and dermatomes, no pronator drift Chest: equal rise and fall of the chest, no accessory muscle use, no heaves or thrills, Clear to auscultation, on room air, Cardiac: Irregular rate and rhythm, telemetry reviewed- Aflutter/Afib, skin warm dry, cap refill <3 seconds, peripheral pulses +2 no JVD, no murmur, no edema GI: NABS x 4 quadrants, soft, nontender to palpation, no rebound, guarding or tenderness : Spontaneously voiding, no pain, no CVA tenderness, Extremities: Normal inspection, no peripheral edema or erythema, calfs nontender to palpation Psych: Normal mood and affect Skin: no rash or erythema Principal Diagnosis AFlutter Discharge Exam Vital Signs Temp Pulse Pulse Resp BP BP Pulse Ox 06/01/21 15:42 37 C 78 18 125/76 95 06/01/21 12:00 36.9 C 82 18 131/55 L 96 06/01/21 08:00 37 C 93 H 18 125/86 98 06/01/21 04:37 36.8 C 77 17 141/76 H 97 05/31/21 22:45 87 16 132/76 98 05/31/21 22:30 76 76 26 H 132/76 98 05/31/21 22:00 87 23 99 05/31/21 21:30 79 23 141/84 H 99 05/31/21 20:00 75 18 05/31/21 19:32 77 18 124/93 96 05/31/21 19:30 77 25 H 05/31/21 19:10 77 16 131/82 97 05/31/21 19:06 76 14 05/31/21 18:00 72 14 05/31/21 17:30 73 16 05/31/21 17:20 72 14 05/31/21 17:10 76 21 05/31/21 17:07 36.9 C 78 19 123/62 94 05/31/21 17:00 75 23 05/31/21 16:50 76 17 05/31/21 16:40 72 20 05/31/21 16:30 70 16 Patient Weight 06/02/21 06:59 Weight 63.6 kg Constitutional WD/WN, vitals as above Respiratory normal respiratory effort, lungs clear to auscultation Cardiovascular RRR, no murmur, no edema Gastrointestinal (Abdomen) normal bowel sounds, soft, nontender, no hepatosplenomegaly Musculoskeletal no cyanosis or clubbing, extremities motor strength 5/5 Psychiatric A+Ox3, euthymic affect Discharge Data Allergies Allergy/AdvReac Type Severity Reaction Status Date / Time Penicillins Allergy Intermediate Rash Verified 05/31/21 13:54 mirtazapine [From Remeron] Allergy Unknown Unknown Verified 05/31/21 13:54 diphenhydramine AdvReac Intermediate "couldn't Verified 05/31/21 13:54 [From Benadryl] stop talking" Consultations Cardiology consulted -- Seen by Dr. Eisenberg, recommended DOAC and outpatient follow up in cardiology clinic Procedures Performed None Ordered Studies Chest X-Ray 05/31/21 12:25 XR chest 1V portable CLINICAL HISTORY: Dysrhythmia COMPARISON STUDY: Chest CT June 10, 2019. Chest radiograph May 30, 2018. FINDINGS: Relative lucency of the right lung is due to right mastectomy. Lung volumes are normal. Lungs are clear. There is no pneumothorax or pleural effusion. Cardiac size is stable. Mediastinal contours are normal. There is no evidence for pulmonary edema. IMPRESSION: No acute cardiopulmonary findings. ACT 112: Negative or not required by law. Electronically signed by: Josué Contreras M.D. 05/31/2021 1:29 PM Chest CTA 06/01/21 14:16 CT ANGIOGRAM OF THE CHEST CLINICAL HISTORY: Dyspnea. COMPARISON STUDY: Chest x-ray dated 05/31/2021. Chest CT dated 06/10/2019. TECHNIQUE: Following the IV administration of 99 cc of Optiray 320, CT angiogram of the chest was performed from the upper abdomen to the thoracic inlet utilizing the pulmonary embolus protocol. Images are reviewed in the axial, sagittal, and coronal planes. 3-D MIPS images are created and assessed. IV contrast was administered without complication. A dose lowering technique was utilized adhering to the principles of ALARA. CT DOSE: 236.06 mGy.cm FINDINGS: Thyroid: Imaged portions of the thyroid gland are normal in size and attenuation. Thoracic aorta: The thoracic aorta is normal in caliber and demonstrates standard 3-vessel arch anatomy. No dissection is seen. Pulmonary vasculature: The pulmonary trunk is normal in caliber. There are no filling defects identified in main, lobar, or segmental pulmonary branches to suggest pulmonary embolus. Heart: The heart is normal in size and without pericardial effusion. The mitral annulus is densely calcified. Lungs and pleural spaces: There is no airspace consolidation typical for pneumonia or pleural effusion. A fat-containing Bochdalek hernia is noted at the left lung base. There is bibasilar scarring/atelectasis. Scattered calcified granulomas are observed. Mediastinum: There is no mediastinal lymphadenopathy. Berta: Clear. Axillae: There is no axillary lymphadenopathy. Upper abdomen: There is a small hiatal hernia. Mild wall thickening is noted in the distal esophagus., Which contains intraluminal debris. A 2.1 cm renal cyst is noted in the left upper pole. Skeletal structures: The skeletal structures are osteopenic. Degenerative change and mild kyphoscoliosis are noted in the thoracic spine. No lytic or blastic bony lesions are seen. Arthritic change is seen in the shoulders. Soft tissues: The right breast is surgically absent. IMPRESSION: 1. There is no evidence of pulmonary embolus in the main, lobar, or segmental pulmonary arteries. 2. There is no airspace consolidation or pleural effusion. 3. There is mild wall thickening of the distal esophagus with intraluminal debris. Correlate clinically for evidence of esophagitis. 4. Additional findings as above. ACT 112: Negative or not required by law. Electronically signed by: Reji Davis M.D. 06/01/2021 3:11 PM Echocardiogram: 06/01 LVEF is normal. The left atrium is mildly dilated. Aortic valve sclerosis moderate, without significant aortic valvular stenosis. There is moderate mitral annular calcification. There is mild MR. There is mild MS. Right ventricular systolic pressure is elevated at 30-40 mmHg Hospital Course (1) Atrial flutter with rapid ventricular response: Aflutter predominantly with variable conduction some afib on telemetry review. Patient was refractory to BB therapy, was initiated on IV Cardizem gtt, spontaneously converted to NSR and transitioned to oral Cardizem 30mg TID. Cardiology consulted. Troponins were trended. Echocardiogram ordered to evaluate LVEF, wall motion abnormalities, and valves. Noted results are as above. Cardiology consulted, seen by Dr. 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 Is agreeable to medication management. Will plan to transition to oral Cardizem CD 120mg daily upon discharge as well as continue Eliquis 5mg twice daily as she is considered a higher risk of stroke. Pt will require ongoing cardiac care as an outpatient. (2) Elevated troponin: Non-specific T wave changes- likley consistent with stress response of increased HR over the past 4 days. Trop peaked at 0.229 and follow up down at 0.180. Again, felt to be likely a type II demand ischemic event related to uncontrolled ventricular response. No plan for cardiac cath at this time. (3) Asthma, mild intermittent: Well controlled with her medications: TAM and Montelukast and fexofenadine were all continued. (4) GERD (gastroesophageal reflux disease): With large hiatal hernia requiring surgical repair in 2019 - remains on dual acid suppression as outpatient - continue famotidine and pantoprazole (5) Chronic kidney disease, stage 3: CKD III a- stable - follow with eliquis dosing (6) Depression: Continue Venlafaxine (7) Back pain: Chronic with OA - Continue Tylenol PRN - Continue methocarbamol TID CTA chest obtained due to presentation with aflutter and dypsnea which was negative for acute PE. CTA chest negative. Pt at this time, felt to be medically stable for discharge home with outpatient follow up. Medications to be taken as prescribed. F/U with [facility]MD within 1 week of discharge. Total Time Total Time Spent Total Time Spent (In Minutes): Total time spent on discharge: 40 minutes Discharge Plan Discharge Items Patient Disposition: Home - Self-Care Reason For Visit: AFLUTTER,DYSPNEA Discharge Diagnosis: Atrial flutter s/p conversion back to NSR Condition on Discharge: Good Activity: Resume your previous activity Bathing: No limitations Non-emergency contact: Primary Care Provider and [employer] Call non-emergency contact if: you have any medication questions and your symptoms worsen Follow-up/Referrals: Ranjan Rodriguez DO [Primary Care Provider] - Diet: Heart Healthy Addtl Attending Provider Instructions: 1. Take all medications as directed. 2. Note new medications being provided at this visit: Cardizem CD 120mg - take one capsule each morning and Eliquis 5mg - one tablet by mouth twice daily 3. Follow up with cardiology, Dr. Eisenberg, within 1-2 weeks of discharge. 4. Follow up with PCP within 1 week of discharge. Pending Studies at Discharge: No Stand-Alone Forms: My [facility] [employer], Smoking Cessation Medications and DC Order Prescriptions: New Eliquis 5 mg tablet 5 mg PO BID Qty: 60 RF: 0 diltiazem HCl [Cardizem CD] 120 mg capsule,extended release 24hr 120 mg PO DAILY Qty: 30 RF: 0 Continued albuterol sulfate 90 mcg/actuation HFA aerosol inhaler 1 puffs INH Q6H PRN (Reason: shortness of breath or wheezing) Qty: 18 RF: 3 famotidine [Pepcid] 40 mg tablet 40 mg PO BID Qty: 60 RF: 5 fluticasone propion-salmeterol [Advair Diskus] 500-50 mcg/dose blister with device 1 inh INHALATION DAILY Qty: 60 RF: 3 montelukast 10 mg tablet 10 mg PO PM Qty: 90 RF: 3 epinephrine 0.3 mg/0.3 mL auto-injector 0.3 ml IM UD PRN (Reason: anaphylaxis) Qty: 1 RF: 0 acetaminophen 650 mg tablet extended release 1,300 mg PO BID PRN (Reason: fever or pain) Qty: 60 RF: 0 docusate sodium 100 mg capsule 100 mg PO BID PRN (Reason: Constipation) RF: 0 lubiprostone 8 mcg capsule 8 mcg PO BID PRN (Reason: Constipation) RF: 0 methocarbamol 500 mg tablet 500 mg PO TID Qty: 90 RF: 0 cholecalciferol (vitamin D3) [Vitamin D3] 5,000 unit Tablet 5,000 unit PO QAM RF: 0 venlafaxine 75 mg capsule,extended release 24hr 75 mg PO QAM RF: 0 fexofenadine 180 mg tablet 180 mg PO BID PRN (Reason: Allergy Symptoms) RF: 0 pantoprazole 40 mg tablet,delayed release (DR/EC) 40 mg PO QAM PRN (Reason: Acid Reflux) RF: 0 Discharge Orders: Discharge Order (Routine); Ordered 06/01/21 Ordered By: Luz Chambers Admission Data Admit Date/Time: 05/31/21 14:23 Attending Provider: Maynor Tello Admit Provider: Peter Mayo Primary Care Provider: Ranjan Rodriguez Other Providers: Peter Mayo ; Manjinder Eisenberg Other Interventions: Discharge Summary Assessment (RN) Last Done: 06/01/21 15:42 Coding Level of Care Code D/C DAY MANAGEMENT >30 MINS Diagnoses Atrial flutter with rapid ventricular response I48.92 Elevated troponin R77.8 Asthma, mild intermittent J45.20 GERD (gastroesophageal reflux disease) K21.9 Chronic kidney disease, stage 3 N18.3 Depression F32.9 Back pain M54.9
== END 2021-06-01 15:42 | disposition home or self-care (01) | DRG 309 ==
LOC: ED 11:55 → SUATTDRO 14:23 → EDINP 14:23